=== PATIENT | male | born 1975 | race Caucasian/White ===

== ENCOUNTER 2019-02-22 12:24 | Inpatient (IN) | payer OTHER ==
[~2019-02-22] VITALS: Ht 172.7 cm; Wt 101.6 kg
[2019-02-22 13:20] LABS: BASOPHILS # (AUTO) 0.04 x10^3/uL (0-0.1); BASOPHILS % (AUTO) 0 % (0-1); EOSINOPHILS # (AUTO) 0.19 x10^3/uL (0-0.4); EOSINOPHILS % (AUTO) 2 % (1-7); LYMPHOCYTES # (AUTO) 1.21 x10^3/uL (1-3.4); LYMPHOCYTES % (AUTO) 11 % (22-44); MD NO; MEAN CORPUSCULAR HEMOGLOBIN 29.7 pg (27.5-34.5); MEAN CORPUSCULAR HGB CONC 31.9 g/dL (33.2-36.2); MEAN CORPUSCULAR VOLUME 93.2 fL (81-97); MEAN PLATELET VOLUME 6.2 fL (7.4-10.4); MONOCYTES # (AUTO) 0.72 x10^3/uL (0.2-0.8); MONOCYTES % (AUTO) 7 % (2-9); NEUTROPHILS # (AUTO) 8.47 x10^3/uL (1.8-6.8); NEUTROPHILS % (AUTO) 80 % (42-75); PLATELET COUNT 427 x10^3/uL (130-400); RED BLOOD COUNT 3.36 x10^6/uL (4.38-5.82); RED CELL DISTRIBUTION WIDTH 14.6 % (9.4-14.8)
[2019-02-22 13:33] LABS: ALBUMIN 2.1 g/dL (3.4-5.0)
[2019-02-22 13:38] LABS: ALANINE AMINOTRANSFERASE 25 U/L (12-78); ALKALINE PHOSPHATASE 139 U/L (45-117); BILIRUBIN,TOTAL 0.5 mg/dL (0.2-1.0); TOTAL PROTEIN 6.6 g/dL (6.4-8.2); TROPONIN I 0.054 ng/mL (0.000-0.045)
--- NOTE | 2019-02-22 13:40 | NUR ---
ASSUMED CARE OF PT FROM LOBBY AT THIS TIME. PT C/O MULTIPLE SYMPTOMS INCLUDING COUGH FOR 2 WEEKS, SOB ON EXERTION, NAUSEA, AND "SOMETHING STUCK IN MY THROAT" OVER SAME 2 WEEKS. PT HAS HX OF DM AND HTN. SPOUSE AT BEDSIDE REPORTS PT IS NONCOMPLIANT WITH HTN MEDS. + SWELLING TO BOTH EXTREMITIES. PT DENIES CP. PT RECENTLY TRAVELED TO [place] VIA CAR.
[2019-02-22 13:43] LABS: ANION GAP 16 mmol/L (5-15); CALCIUM 6.2 mg/dL (8.5-10.1); CHLORIDE 111 mmol/L (98-107)
[2019-02-22] MEDS ORDERED: ASPIRIN 325 MG TABLET PO ONE (14:00)
[2019-02-22] MEDS ORDERED: INSULIN PUMP (14:27)
[2019-02-22] MEDS ORDERED: COREG PO (14:28)
[2019-02-22] MEDS ORDERED: LIDOCAINE 1%, 20ML ONE (14:52)
--- NOTE | 2019-02-22 14:59 | NUR ---
PT TO IR PRIOR TO BEING ABLE TO GIVE NITRO FOR BP.
[2019-02-22] MEDS ORDERED: NITROGLYCERIN 0.4 MG BOTTLE (25 TABS) SL ONE (15:00)
--- NOTE | 2019-02-22 15:10 | NUR ---
NO BLOOD CULTURES NEEDED PER DR. SHARMA PRIOR TO ANTIBIOTICS.
[2019-02-22 15:12] LABS: MICROSCOPIC INDICATED
[2019-02-22] MEDS ORDERED: FENTANYL PF 100 MCG/2ML ONE (15:13)
[2019-02-22] MEDS ORDERED: FLUMAZENIL 0.1 MG/1 ML, 5ML ONE (15:13)
[2019-02-22] MEDS ORDERED: NALOXONE 1 MG/ML, 2ML ONE (15:13)
[2019-02-22] MEDS ORDERED: CEFAZOLIN PMX 1GM/50ML 0 ML ONE (15:13)
[2019-02-22] MEDS ORDERED: MIDAZOLAM 1 MG/ML, 5ML ONE (15:13)
[2019-02-22] MEDS ORDERED: ASPIRIN 325 MG TABLET ONE (15:13)
[2019-02-22] MEDS ORDERED: CEFAZOLIN PMX 1GM/50ML 50 ML IV ONE (15:30)
[2019-02-22 15:34] LABS: CULTURE INDICATED? NO
--- NOTE | 2019-02-22 15:43 | NUR ---
PT STILL IN IR.
--- NOTE | 2019-02-22 15:49 | NUR ---
PT BACK FROM IR. PT RECEIVED 1 GRAM OF ANCEF WHILE IN IR.
[2019-02-22] MEDS ORDERED: NITROGLYCERIN SINGLE TAB 0.4 MG SL ONE (15:53)
--- NOTE | 2019-02-22 15:57 | NUR ---
DR. WINSTON, NEPHROLOGY, AT BEDSIDE. PT MEDICATED FOR BP.
--- NOTE | 2019-02-22 16:30 | NUR ---
BP 184/124. DR. SHARMA AWARE AND NOT GOING TO TREAT RIGHT PT IS SUPPOSE TO GET DIALYSIS TONIGHT.
[2019-02-22 16:48] LABS: ABSOLUTE RETICS # 0.084 x10^6/uL (0.5-1.5); RED BLOOD COUNT 3.32 x10^6/uL (4.38-5.82); RETICULOCYTE COUNT % 2.52 % (0.5-1.5)
[2019-02-22] MEDS ORDERED: hydrALAzine 20 MG/ML, 1ML IVPush PRN (17:00)
[2019-02-22] MEDS ORDERED: ONDANSETRON ODT 4 MG PO PRN (17:00)
[2019-02-22] MEDS ORDERED: ACETAMINOPHEN 325 MG TABLET PO PRN (17:00)
[2019-02-22] MEDS ORDERED: ONDANSETRON 2MG/ML, 2ML IVPush PRN (17:00)
[2019-02-22 17:09] LABS: CALCIUM 6.2 mg/dL (8.5-10.1)
--- NOTE | 2019-02-22 17:11 | NUR ---
PT SPOKE TO SPOUSE AND SHE REPORRTS THAT HE NEVER HAD MRSA. PT WAS INITIALLY CONFUSED IN TRIAGE THAT HE MAY HAVE HAD IT WHILE HE WAS IN [place] "MANY YEARS AGO."
[2019-02-22 17:21] LABS: HEMOGLOBIN A1C 6.3 % (4.2-6.3)
[2019-02-22 17:33] LABS: C-REACTIVE PROTEIN, QUANT 0.79 mg/dL (0.02-0.49)
[2019-02-22 17:38] LABS: TROPONIN I 0.053 ng/mL (0.000-0.045)
[2019-02-22 17:55] VITALS: BP 201/135
[2019-02-22 18:07] LABS: HCT (SEDRATE) 31.3 % (39.2-51.8)
[2019-02-22 18:56] VITALS: BP 165/88
[2019-02-22 19:42] VITALS: BP 165/101
[2019-02-22] MEDS: HEPARIN 5,000 UNITS/ML, 1ML SQ SCH (20:08)
[2019-02-22 23:39] LABS: CREATININE,URINE RANDOM 59.9 mg/dL
[2019-02-23 01:50] VITALS: BP 137/83
[2019-02-23 02:23] LABS: TROPONIN I 0.045 ng/mL (0.000-0.045)
[2019-02-23] MEDS: HEPARIN 5,000 UNITS/ML, 1ML SQ SCH ×3 (04:21→20:10)
[2019-02-23 05:58] LABS: BASOPHILS # (AUTO) 0.06 x10^3/uL (0-0.1); BASOPHILS % (AUTO) 1 % (0-1); EOSINOPHILS # (AUTO) 0.13 x10^3/uL (0-0.4); EOSINOPHILS % (AUTO) 1 % (1-7); LYMPHOCYTES # (AUTO) 1.04 x10^3/uL (1-3.4); LYMPHOCYTES % (AUTO) 10 % (22-44); MD NO; MEAN CORPUSCULAR HEMOGLOBIN 30.7 pg (27.5-34.5); MEAN CORPUSCULAR HGB CONC 33.1 g/dL (33.2-36.2); MEAN CORPUSCULAR VOLUME 92.6 fL (81-97); MEAN PLATELET VOLUME 6.6 fL (7.4-10.4); MONOCYTES # (AUTO) 0.69 x10^3/uL (0.2-0.8); MONOCYTES % (AUTO) 7 % (2-9); NEUTROPHILS # (AUTO) 8.37 x10^3/uL (1.8-6.8); NEUTROPHILS % (AUTO) 81 % (42-75); PLATELET COUNT 397 x10^3/uL (130-400); RED BLOOD COUNT 3.15 x10^6/uL (4.38-5.82)
[2019-02-23 06:16] LABS: ALANINE AMINOTRANSFERASE 17 U/L (12-78); ANION GAP 13 mmol/L (5-15); CALCIUM 6.4 mg/dL (8.5-10.1); CHLORIDE 106 mmol/L (98-107)
[2019-02-23 06:18] LABS: ALKALINE PHOSPHATASE 122 U/L (45-117); BILIRUBIN,TOTAL 0.7 mg/dL (0.2-1.0); TOTAL PROTEIN 6.3 g/dL (6.4-8.2)
[2019-02-23 07:05] VITALS: BP 163/94
[2019-02-23] MEDS: CALCITRIOL 0.25 MCG CAPSULE PO SCH (07:37)
[2019-02-23] MEDS ORDERED: ARANESP 60 MCG/ML **ESRD SQ SCH (12:00)
[2019-02-23] MEDS ORDERED: ERGOCALCIFEROL 50,000 UNIT CAPSULE PO SCH (12:00)
[2019-02-23] MEDS: IRON SUCROSE COMPLEX 100MG/5ML IV SCH (12:46)
[2019-02-23] MEDS ORDERED: DARBEPOETIN 100 MCG/ML SQ SCH (13:00)
[2019-02-23 13:15] VITALS: BP 123/85
[2019-02-23 19:14] VITALS: BP 148/91
[2019-02-24 00:49] VITALS: BP 136/82
[2019-02-24] MEDS: HEPARIN 5,000 UNITS/ML, 1ML SQ SCH ×3 (04:23→20:10)
[2019-02-24 06:55] LABS: BASOPHILS # (AUTO) 0.03 x10^3/uL (0-0.1); BASOPHILS % (AUTO) 0 % (0-1); EOSINOPHILS # (AUTO) 0.16 x10^3/uL (0-0.4); EOSINOPHILS % (AUTO) 2 % (1-7); LYMPHOCYTES # (AUTO) 1.64 x10^3/uL (1-3.4); LYMPHOCYTES % (AUTO) 20 % (22-44); MD NO; MEAN CORPUSCULAR HEMOGLOBIN 30.7 pg (27.5-34.5); MEAN CORPUSCULAR HGB CONC 32.6 g/dL (33.2-36.2); MEAN CORPUSCULAR VOLUME 94.3 fL (81-97); MEAN PLATELET VOLUME 6.7 fL (7.4-10.4); MONOCYTES # (AUTO) 0.76 x10^3/uL (0.2-0.8); MONOCYTES % (AUTO) 9 % (2-9); NEUTROPHILS # (AUTO) 5.48 x10^3/uL (1.8-6.8); NEUTROPHILS % (AUTO) 68 % (42-75); PLATELET COUNT 420 x10^3/uL (130-400); RED BLOOD COUNT 3.28 x10^6/uL (4.38-5.82); RED CELL DISTRIBUTION WIDTH 14.5 % (9.4-14.8)
[2019-02-24 07:11] LABS: ANION GAP 12 mmol/L (5-15); CALCIUM 6.7 mg/dL (8.5-10.1); CHLORIDE 106 mmol/L (98-107); CREATININE 8.74 mg/dL (0.7-1.3)
[2019-02-24 07:42] VITALS: BP 166/89
[2019-02-24] MEDS: CALCITRIOL 0.25 MCG CAPSULE PO SCH (09:01)
[2019-02-24] MEDS: LOSARTAN 50MG TABLET PO SCH (09:02)
[2019-02-24] MEDS ORDERED: POTASSIUM CHLORIDE 20 MEQ TAB.ER.PRT PO ONE (11:00)
[2019-02-24] MEDS: IRON SUCROSE COMPLEX 100MG/5ML IV SCH (12:08)
[2019-02-24 14:33] VITALS: BP 165/95
[2019-02-24] MEDS: CARVEDILOL 6.25 MG TABLET PO SCH (17:25)
[2019-02-24 17:26] VITALS: BP 155/97
[2019-02-24 19:11] VITALS: BP 146/91
[2019-02-25 01:32] VITALS: BP 152/99
[2019-02-25] MEDS: HEPARIN 5,000 UNITS/ML, 1ML SQ SCH ×2 (05:07→12:22)
[2019-02-25] MEDS: CARVEDILOL 6.25 MG TABLET PO SCH (05:08)
[2019-02-25 05:57] LABS: BASOPHILS # (AUTO) 0.03 x10^3/uL (0-0.1); BASOPHILS % (AUTO) 0 % (0-1); EOSINOPHILS # (AUTO) 0.14 x10^3/uL (0-0.4); EOSINOPHILS % (AUTO) 2 % (1-7); LYMPHOCYTES # (AUTO) 1.68 x10^3/uL (1-3.4); LYMPHOCYTES % (AUTO) 19 % (22-44); MD NO; MEAN CORPUSCULAR HEMOGLOBIN 30.1 pg (27.5-34.5); MEAN CORPUSCULAR HGB CONC 32.1 g/dL (33.2-36.2); MEAN CORPUSCULAR VOLUME 93.8 fL (81-97); MEAN PLATELET VOLUME 6.3 fL (7.4-10.4); MONOCYTES # (AUTO) 0.75 x10^3/uL (0.2-0.8); MONOCYTES % (AUTO) 9 % (2-9); NEUTROPHILS # (AUTO) 6.07 x10^3/uL (1.8-6.8); NEUTROPHILS % (AUTO) 70 % (42-75); PLATELET COUNT 422 x10^3/uL (130-400); RED BLOOD COUNT 3.31 x10^6/uL (4.38-5.82); RED CELL DISTRIBUTION WIDTH 14.5 % (9.4-14.8)
[2019-02-25 06:04] LABS: ALANINE AMINOTRANSFERASE 10 U/L (12-78); ALBUMIN 2.1 g/dL (3.4-5.0); ANION GAP 8 mmol/L (5-15); CALCIUM 7.3 mg/dL (8.5-10.1); CHLORIDE 108 mmol/L (98-107); CREATININE 6.82 mg/dL (0.7-1.3)
[2019-02-25 06:07] LABS: ALKALINE PHOSPHATASE 116 U/L (45-117); BILIRUBIN,TOTAL 0.3 mg/dL (0.2-1.0); TOTAL PROTEIN 6.4 g/dL (6.4-8.2)
[2019-02-25 06:55] VITALS: BP 131/80
[2019-02-25] MEDS: CALCITRIOL 0.25 MCG CAPSULE PO SCH (09:27)
[2019-02-25] MEDS: LOSARTAN 50MG TABLET PO SCH (09:28)
[2019-02-25] MEDS: IRON SUCROSE COMPLEX 100MG/5ML IV SCH (12:22)
[2019-02-25] MEDS ORDERED: CARV6.2512 PO (12:56)
[2019-02-25] MEDS ORDERED: CALC0.25 PO (12:56)
[2019-02-25] MEDS ORDERED: LOSA50TA2 PO (12:56)
[2019-02-25 13:23] VITALS: BP 136/82
== END 2019-02-25 15:20 | disposition home or self-care (01) | DRG 280 ==
LOC: ED 14:40 → EDIP 15:55 → 4WST 17:36 → DCLOUNGE 02-25 15:10
PROVIDERS: ADMIT Internal Medicine; ATTEND Internal Medicine
PROC: 5A1D70Z Performance of Urinary Filtration, Intermittent, Less than 6 Hours Per Day (ICD-10-PCS; 2019-02-20)
PROC: 02HV33Z Insertion of Infusion Device into Superior Vena Cava, Percutaneous Approach (ICD-10-PCS; principal; 2019-02-22)
PROC: B5181ZA Fluoroscopy of Superior Vena Cava using Low Osmolar Contrast, Guidance (ICD-10-PCS; 2019-02-22)
PROC: B548ZZA Ultrasonography of Superior Vena Cava, Guidance (ICD-10-PCS; 2019-02-22)
PROC: 5A1D70Z Performance of Urinary Filtration, Intermittent, Less than 6 Hours Per Day (ICD-10-PCS; 2019-02-22)
PROC: 5A1D70Z Performance of Urinary Filtration, Intermittent, Less than 6 Hours Per Day (ICD-10-PCS; 2019-02-23)
PROC: 5A1D70Z Performance of Urinary Filtration, Intermittent, Less than 6 Hours Per Day (ICD-10-PCS; 2019-02-24)
DX: I21.4 Non-ST elevation (NSTEMI) myocardial infarction (principal); N18.6 End stage renal disease; N17.9 Acute kidney failure, unspecified; E87.2 Acidosis; I13.2 Hypertensive heart and chronic kidney disease with heart failure and with stage 5 chronic kidney disease, or end stage renal disease; D64.9 Anemia, unspecified; D72.829 Elevated white blood cell count, unspecified; E10.21 Type 1 diabetes mellitus with diabetic nephropathy; E10.22 Type 1 diabetes mellitus with diabetic chronic kidney disease; E10.319 Type 1 diabetes mellitus with unspecified diabetic retinopathy without macular edema; E10.42 Type 1 diabetes mellitus with diabetic polyneuropathy; E10.610 Type 1 diabetes mellitus with diabetic neuropathic arthropathy; E83.51 Hypocalcemia; E78.5 Hyperlipidemia, unspecified; E87.6 Hypokalemia; I50.9 Heart failure, unspecified; N25.0 Renal osteodystrophy; Z79.4 Long term (current) use of insulin; Z80.0 Family history of malignant neoplasm of digestive organs; Z99.2 Dependence on renal dialysis; Z89.411 Acquired absence of right great toe
CPT/HCPCS: 36415; 73630; 77001; 84155; 84156; 99285; J3490; 36558; 71045; 76770; 76937; 80053; 80069; 80074; 81001; 82306; 82310; 82436; 82570; 82728; 82947; 82962; 83036; 83540; 83550; 83690; 83735; 83880; 83970; 84100; 84133; 84165; 84166; 84300; 84484; 84550; 85025; 85045; 85651; 86140; 86480; 93005; 93306; 93970; 99156; 99157; G0378; J0690; J0882; J1644; J1756; J2250; J3010; C1750; J0360; J1642; J2310

== ENCOUNTER 2019-09-15 12:43 | Inpatient (IN) | payer OTHER ==
[~2019-09-15] VITALS: Ht 172.7 cm; Wt 98.0 kg
[~2019-09-15 12:43] MED LIST: CALC0.25 PO; CARV6.2512 PO; COREG PO; INSULIN PUMP; LOSA50TA2 PO
[2019-09-15] MEDS ORDERED: SODIUM CHLORIDE FLUSH 10ML SYR IVF ONE (13:30)
[2019-09-15 13:47] LABS: MEAN CORPUSCULAR HEMOGLOBIN 30.3 pg (27.5-34.5); MEAN CORPUSCULAR HGB CONC 32.2 g/dL (33.2-36.2); MEAN PLATELET VOLUME 6.9 fL (7.4-10.4); PLATELET COUNT 312 x10^3/uL (130-400); RED BLOOD COUNT 3.77 x10^6/uL (4.38-5.82); RED CELL DISTRIBUTION WIDTH 15.5 % (9.4-14.8)
[2019-09-15 13:52] LABS: ALBUMIN 3.1 g/dL (3.4-5.0); ANION GAP 5 mmol/L (5-15); CALCIUM 7.6 mg/dL (8.5-10.1); CHLORIDE 101 mmol/L (98-107)
[2019-09-15] MEDS ORDERED: ACETAMINOPHEN 500 MG TABLET ONE (13:53)
[2019-09-15] MEDS ORDERED: ACETAMINOPHEN 500 MG TABLET PO ONE (14:00)
[2019-09-15 14:41] LABS: MD YES
[2019-09-15 14:43] LABS: BAND#(MANUAL) 2.12 x10^3/uL; BANDS%(MANUAL) 15 % (0-7); LYMPH#(MANUAL) 0.56 x10^3/uL (1-3.4); LYMPHS% (MANUAL) 4 % (22-44); MONOS#(MANUAL) 0.42 x10^3/uL (0.3-2.7); MONOS% (MANUAL) 3 % (2-9); SEGS% (MANUAL) 78 % (42-75)
[2019-09-15 14:44] LABS: ANISOCYTOSIS 1+
[2019-09-15 14:45] LABS: <PLATELET ESTIMATE> ADEQUATE; <PLT MORPHOLOGY> NORMAL PLT MORPH
[2019-09-15] MEDS ORDERED: VANCOMYCIN 1,500 MG in SODIUM CHLORIDE 0.9% 250 ML IV ONE (15:30)
[2019-09-15] MEDS ORDERED: VANCOMYCIN PER PHARMACY MC ONE (15:30)
[2019-09-15] MEDS ORDERED: PIPERACILLIN/TAZO/PMX 3.375GM 50 ML ONE (15:30)
[2019-09-15] MEDS ORDERED: PIPERACILLIN/TAZO/PMX 3.375GM 50 ML IV ONE (15:30)
[2019-09-15] MEDS ORDERED: LIDOCAINE 1%, 20ML ONE (15:59)
[2019-09-15] MEDS ORDERED: hydrALAzine 20 MG/ML, 1ML IVPush PRN (16:00)
[2019-09-15] MEDS ORDERED: LABETALOL 5MG/ML, 20ML IVPush PRN (16:00)
[2019-09-15] MEDS ORDERED: GUAIFENESIN/DM 200-20MG, 10ML UDC PO PRN (16:00)
[2019-09-15] MEDS ORDERED: BUTALB/APAP/CAFFEINE 50MG/325MG/40MG PO PRN ×2 (16:00)
[2019-09-15] MEDS ORDERED: SODIUM CHLORIDE 0.9%, 500ML IVBOLUS ONE (16:00)
[2019-09-15] MEDS ORDERED: POLYETHYLENE GLYCOL 17 GM PACKET PO PRN (16:00)
[2019-09-15] MEDS ORDERED: VANCOMYCIN PER PHARMACY MC PRN (16:00)
[2019-09-15] MEDS ORDERED: ONDANSETRON 2MG/ML, 2ML IVPush PRN (16:00)
[2019-09-15] MEDS ORDERED: ONDANSETRON ODT 4 MG PO PRN (16:00)
[2019-09-15] MEDS ORDERED: FENTANYL PF 100 MCG/2ML ONE (16:13)
[2019-09-15] MEDS ORDERED: PHARMACOKINETIC MONITORING MC PRN (18:00)
[2019-09-15] MEDS ORDERED: PIPERACILLIN/TAZO 0.75 GM in SODIUM CHLORIDE 0.9% 50 ML IV PRN (18:00)
[2019-09-15] MEDS ORDERED: PHARMACOKINETIC CONSULTATION MC ONE (18:00)
[2019-09-15 20:03] VITALS: BP 124/75
[2019-09-15] MEDS ORDERED: CALCIUM CARBONATE 500 MG TAB.CHEW ONE (20:16)
[2019-09-15] MEDS: CALCIUM CARBONATE 500 MG TAB.CHEW PO PRN (20:18)
[2019-09-16 00:44] VITALS: BP 112/66
[2019-09-16] MEDS: CALCIUM CARBONATE 500 MG TAB.CHEW PO PRN ×2 (04:03→17:42)
[2019-09-16] MEDS: ACETAMINOPHEN 325 MG TABLET PO PRN ×2 (04:07→15:02)
[2019-09-16 05:09] LABS: BASOPHILS # (AUTO) 0.04 x10^3/uL (0-0.1); BASOPHILS % (AUTO) 0 % (0-1); EOSINOPHILS # (AUTO) 0.15 x10^3/uL (0-0.4); EOSINOPHILS % (AUTO) 2 % (1-7); LYMPHOCYTES # (AUTO) 0.84 x10^3/uL (1-3.4); LYMPHOCYTES % (AUTO) 9 % (22-44); MD NO; MEAN CORPUSCULAR HGB CONC 32.2 g/dL (33.2-36.2); MEAN CORPUSCULAR VOLUME 96.1 fL (81-97); MEAN PLATELET VOLUME 7.5 fL (7.4-10.4); MONOCYTES # (AUTO) 0.77 x10^3/uL (0.2-0.8); MONOCYTES % (AUTO) 8 % (2-9); NEUTROPHILS # (AUTO) 7.44 x10^3/uL (1.8-6.8); NEUTROPHILS % (AUTO) 81 % (42-75); PLATELET COUNT 231 x10^3/uL (130-400); RED CELL DISTRIBUTION WIDTH 15.5 % (9.4-14.8)
[2019-09-16 05:12] LABS: % IRON SATURATION 8 % (20-55); ALBUMIN 2.7 g/dL (3.4-5.0); ANION GAP 8 mmol/L (5-15); CALCIUM 7.2 mg/dL (8.5-10.1); CHLORIDE 101 mmol/L (98-107); IRON LEVEL 15 mcg/dL (65-175); TOTAL IRON BINDING CAPACITY 199 mcg/dL (250-450)
[2019-09-16 05:16] LABS: VANCOMYCIN,RANDOM 33.4 mcg/mL
[2019-09-16] MEDS: PIPERACILLIN/TAZO/PMX 2.25GM 50 ML IV SCH ×2 (06:16→17:36)
[2019-09-16 09:14] VITALS: BP 144/87
[2019-09-16] MEDS ORDERED: ERGOCALCIFEROL 50,000 UNIT CAPSULE PO SCH (10:30)
[2019-09-16 14:55] VITALS: BP 166/104
[2019-09-16] MEDS: FERROUS SULFATE 325 MG TABLET PO SCH (17:36)
[2019-09-16] MEDS: CARVEDILOL 6.25 MG TABLET PO SCH (17:36)
[2019-09-16 20:47] VITALS: BP 105/69
[2019-09-17] MEDS: TEMAZEPAM 15 MG CAPSULE PO PRN ×2 (00:58→22:36)
[2019-09-17] MEDS: ACETAMINOPHEN 325 MG TABLET PO PRN ×2 (00:58→14:17)
[2019-09-17 02:31] VITALS: BP 135/85
[2019-09-17] MEDS: PIPERACILLIN/TAZO/PMX 2.25GM 50 ML IV SCH (05:33)
[2019-09-17] MEDS: CARVEDILOL 6.25 MG TABLET PO SCH ×2 (05:34→17:49)
[2019-09-17 08:04] VITALS: BP 136/75
[2019-09-17] MEDS: FERROUS SULFATE 325 MG TABLET PO SCH ×2 (10:02→17:49)
[2019-09-17 12:00] VITALS: BP 166/88
[2019-09-17] MEDS: NAFCILLIN 2 GM in DEXTROSE 5% 100 ML IV SCH ×3 (14:21→22:36)
[2019-09-17] MEDS: CALCIUM CARBONATE 500 MG TAB.CHEW PO PRN (14:23)
[2019-09-17 18:53] VITALS: BP 142/92
[2019-09-18 00:18] VITALS: BP 123/68
[2019-09-18] MEDS: NAFCILLIN 2 GM in DEXTROSE 5% 100 ML IV SCH ×6 (03:09→22:24)
[2019-09-18 06:30] VITALS: BP 149/90
[2019-09-18] MEDS: CARVEDILOL 6.25 MG TABLET PO SCH ×2 (06:34→17:23)
[2019-09-18 06:43] LABS: BASOPHILS # (AUTO) 0.04 x10^3/uL (0-0.1); BASOPHILS % (AUTO) 1 % (0-1); EOSINOPHILS # (AUTO) 0.12 x10^3/uL (0-0.4); EOSINOPHILS % (AUTO) 2 % (1-7); LYMPHOCYTES # (AUTO) 0.96 x10^3/uL (1-3.4); LYMPHOCYTES % (AUTO) 18 % (22-44); MD NO; MEAN CORPUSCULAR HEMOGLOBIN 30.8 pg (27.5-34.5); MEAN CORPUSCULAR HGB CONC 32.2 g/dL (33.2-36.2); MEAN CORPUSCULAR VOLUME 95.6 fL (81-97); MEAN PLATELET VOLUME 7.5 fL (7.4-10.4); MONOCYTES # (AUTO) 0.79 x10^3/uL (0.2-0.8); MONOCYTES % (AUTO) 15 % (2-9); NEUTROPHILS # (AUTO) 3.31 x10^3/uL (1.8-6.8); NEUTROPHILS % (AUTO) 64 % (42-75); PLATELET COUNT 255 x10^3/uL (130-400); RED BLOOD COUNT 3.29 x10^6/uL (4.38-5.82)
[2019-09-18 06:46] LABS: CALCIUM 7.6 mg/dL (8.5-10.1); CHLORIDE 101 mmol/L (98-107)
[2019-09-18 06:52] LABS: ALANINE AMINOTRANSFERASE 23 U/L (12-78); ALBUMIN 2.6 g/dL (3.4-5.0); ALKALINE PHOSPHATASE 165 U/L (45-117); ANION GAP 10 mmol/L (5-15); CREATININE 8.85 mg/dL (0.7-1.3); TOTAL PROTEIN 7.1 g/dL (6.4-8.2)
[2019-09-18] MEDS: FERROUS SULFATE 325 MG TABLET PO SCH ×2 (07:59→17:23)
[2019-09-18 12:34] VITALS: BP 137/80
[2019-09-18] MEDS: CALCIUM CARBONATE 500 MG TAB.CHEW PO PRN ×2 (12:53→17:23)
[2019-09-18 20:49] VITALS: BP 161/94
[2019-09-18] MEDS: TEMAZEPAM 15 MG CAPSULE PO PRN (22:24)
[2019-09-19 02:27] VITALS: BP 165/94
[2019-09-19] MEDS ORDERED: LORazepam 2 MG/ML, 1ML IVPush PRN (03:00)
[2019-09-19] MEDS: NAFCILLIN 2 GM in DEXTROSE 5% 100 ML IV SCH ×3 (03:02→10:30)
[2019-09-19] MEDS: CARVEDILOL 6.25 MG TABLET PO SCH (06:35)
[2019-09-19 06:52] LABS: BASOPHILS # (AUTO) 0.04 x10^3/uL (0-0.1); BASOPHILS % (AUTO) 1 % (0-1); EOSINOPHILS % (AUTO) 4 % (1-7); LYMPHOCYTES # (AUTO) 1.25 x10^3/uL (1-3.4); LYMPHOCYTES % (AUTO) 24 % (22-44); MD NO; MEAN CORPUSCULAR HEMOGLOBIN 30.3 pg (27.5-34.5); MEAN CORPUSCULAR HGB CONC 31.8 g/dL (33.2-36.2); MEAN CORPUSCULAR VOLUME 95.5 fL (81-97); MEAN PLATELET VOLUME 7.1 fL (7.4-10.4); MONOCYTES # (AUTO) 0.62 x10^3/uL (0.2-0.8); MONOCYTES % (AUTO) 12 % (2-9); NEUTROPHILS % (AUTO) 60 % (42-75); PLATELET COUNT 316 x10^3/uL (130-400); RED BLOOD COUNT 3.42 x10^6/uL (4.38-5.82); RED CELL DISTRIBUTION WIDTH 15.5 % (9.4-14.8)
[2019-09-19 07:02] LABS: CHLORIDE 103 mmol/L (98-107)
[2019-09-19 07:16] LABS: ALANINE AMINOTRANSFERASE 19 U/L (12-78); ALBUMIN 2.5 g/dL (3.4-5.0); ALKALINE PHOSPHATASE 143 U/L (45-117); ANION GAP 12 mmol/L (5-15); BILIRUBIN,TOTAL 1.2 mg/dL (0.2-1.0); CALCIUM 7.7 mg/dL (8.5-10.1); TOTAL PROTEIN 7.2 g/dL (6.4-8.2)
[2019-09-19 07:29] VITALS: BP 183/112
[2019-09-19] MEDS: FERROUS SULFATE 325 MG TABLET PO SCH (08:04)
[2019-09-19] MEDS ORDERED: CALC200T24 PO (13:35)
[2019-09-19] MEDS ORDERED: ERGO500017 PO (13:35)
[2019-09-19] MEDS ORDERED: FERR-51 PO (13:35)
== END 2019-09-19 14:11 | disposition home or self-care (01) | DRG 314 ==
LOC: ED 15:49 → EDIP 15:50 → 4WST 17:21
PROVIDERS: ADMIT Family Medicine; ATTEND Family Medicine
PROC: 02PAX3Z Removal of Infusion Device from Heart, External Approach (ICD-10-PCS; 2019-09-15)
PROC: 5A1D70Z Performance of Urinary Filtration, Intermittent, Less than 6 Hours Per Day (ICD-10-PCS; principal; 2019-09-17)
PROC: 5A1D70Z Performance of Urinary Filtration, Intermittent, Less than 6 Hours Per Day (ICD-10-PCS; 2019-09-19)
DX: T82.7XXA Infection and inflammatory reaction due to other cardiac and vascular devices, implants and grafts, initial encounter (principal); N18.6 End stage renal disease; E46 Unspecified protein-calorie malnutrition; I12.0 Hypertensive chronic kidney disease with stage 5 chronic kidney disease or end stage renal disease; R65.10 Systemic inflammatory response syndrome (SIRS) of non-infectious origin without acute organ dysfunction; D64.9 Anemia, unspecified; E10.22 Type 1 diabetes mellitus with diabetic chronic kidney disease; E10.319 Type 1 diabetes mellitus with unspecified diabetic retinopathy without macular edema; E10.610 Type 1 diabetes mellitus with diabetic neuropathic arthropathy; Z68.32 Body mass index [BMI] 32.0-32.9, adult; E78.5 Hyperlipidemia, unspecified; E83.51 Hypocalcemia; I34.0 Nonrheumatic mitral (valve) insufficiency; N25.0 Renal osteodystrophy; Z80.0 Family history of malignant neoplasm of digestive organs; Z96.41 Presence of insulin pump (external) (internal); Z99.2 Dependence on renal dialysis; Y83.8 Other surgical procedures as the cause of abnormal reaction of the patient, or of later complication, without mention of misadventure at the time of the procedure; Y92.89 Other specified places as the place of occurrence of the external cause
CPT/HCPCS: 36415; 77001; 84145; 96365; 99291; J3490; 0399T; 36589; 71045; 80048; 80053; 80069; 80202; 82040; 82306; 82728; 83540; 83550; 83605; 83735; 83970; 84100; 84550; 85025; 86705; 86706; 87040; 87070; 87077; 87147; 87186; 87340; 93005; 93306; G0378; J2405; J2543; J3010; J3370; J0360; J2060; J7040; J7050

== ENCOUNTER → 2019-11-20 | Outpatient (CLI) | payer OTHER ==
[~2019-11-20] MED LIST changes: +CALC200T24 PO; +CARV12.52 PO; +ERGO500017 PO; +FERR-51 PO; +INSU100C SQ-INSULIN; +LOSA25TA25 PO; +ROPI0.254 PO
== END | disposition home or self-care (01) ==
LOC: WOUND 08:34
PROVIDERS: ATTEND Internal Medicine
DX: E10.621 Type 1 diabetes mellitus with foot ulcer (principal); L97.512 Non-pressure chronic ulcer of other part of right foot with fat layer exposed; M14.671 Charcot's joint, right ankle and foot; M14.672 Charcot's joint, left ankle and foot; E10.21 Type 1 diabetes mellitus with diabetic nephropathy; E10.22 Type 1 diabetes mellitus with diabetic chronic kidney disease; I12.0 Hypertensive chronic kidney disease with stage 5 chronic kidney disease or end stage renal disease; N18.6 End stage renal disease; Z89.411 Acquired absence of right great toe; Z99.2 Dependence on renal dialysis; Z79.4 Long term (current) use of insulin
CPT/HCPCS: 11042; 11045; 99215

== ENCOUNTER 2019-11-22 10:05 | Day surgery (SDC) | payer OTHER ==
[~2019-11-22] VITALS: Ht 172.7 cm; Wt 85.0 kg
[~2019-11-22 10:05] MED LIST changes: -CARV12.52 PO; +GLYCOPYRROLATE 0.2MG/1ML, 5ML ONE; -INSU100C SQ-INSULIN; -LOSA25TA25 PO; +PROPOFOL 10 MG/ML, 20ML ONE; -ROPI0.254 PO
[2019-11-22] MEDS ORDERED: MIDAZOLAM 1 MG/ML, 5ML ONE (10:50)
[2019-11-22] MEDS ORDERED: VERAPAMIL 2.5 MG/ML, 2ML ONE (10:50)
[2019-11-22] MEDS ORDERED: TICAGRELOR 90 MG TABLET ONE (10:50)
[2019-11-22] MEDS ORDERED: FENTANYL PF 100 MCG/2ML ONE (10:50)
[2019-11-22] MEDS ORDERED: BIVALIRUDIN 250 MG ONE (10:51)
[2019-11-22] MEDS ORDERED: HEPARIN 1,000 UNITS/ML, 10ML ONE (10:51)
[2019-11-22] MEDS ORDERED: LIDOCAINE-MPF 1%, 5ML ONE (10:51)
[2019-11-22] MEDS ORDERED: NITROGLYCERIN 5 MG/ML, 10ML ONE (10:53)
[2019-11-22] MEDS ORDERED: ROPI0.254 PO (10:58)
[2019-11-22] MEDS ORDERED: INSU100C SQ-INSULIN (10:58)
[2019-11-22] MEDS ORDERED: LOSA25TA25 PO (10:58)
[2019-11-22] MEDS ORDERED: CARV12.52 PO (10:58)
[2019-11-22 11:10] LABS: BASOPHILS # (AUTO) 0.03 x10^3/uL (0-0.1); BASOPHILS % (AUTO) 1 % (0-1); EOSINOPHILS # (AUTO) 0.08 x10^3/uL (0-0.4); EOSINOPHILS % (AUTO) 1 % (1-7); LYMPHOCYTES # (AUTO) 1.53 x10^3/uL (1-3.4); LYMPHOCYTES % (AUTO) 25 % (22-44); MD NO; MEAN CORPUSCULAR HEMOGLOBIN 30.3 pg (27.5-34.5); MEAN CORPUSCULAR VOLUME 91.9 fL (81-97); MEAN PLATELET VOLUME 7.4 fL (7.4-10.4); MONOCYTES # (AUTO) 0.48 x10^3/uL (0.2-0.8); MONOCYTES % (AUTO) 8 % (2-9); NEUTROPHILS # (AUTO) 4.04 x10^3/uL (1.8-6.8); NEUTROPHILS % (AUTO) 66 % (42-75); PLATELET COUNT 372 x10^3/uL (130-400); RED BLOOD COUNT 3.76 x10^6/uL (4.38-5.82); RED CELL DISTRIBUTION WIDTH 14.9 % (9.4-14.8)
[2019-11-22 11:16] LABS: ALANINE AMINOTRANSFERASE 19 U/L (12-78); ANION GAP 5 mmol/L (5-15); CALCIUM 8.9 mg/dL (8.5-10.1); CHLORIDE 98 mmol/L (98-107)
[2019-11-22 11:19] LABS: ALKALINE PHOSPHATASE 132 U/L (45-117); BILIRUBIN,TOTAL 0.6 mg/dL (0.2-1.0); CREATININE 6.72 mg/dL (0.7-1.3); TOTAL PROTEIN 7.6 g/dL (6.4-8.2)
[2019-11-22] MEDS ORDERED: SODIUM CHLORIDE 0.9% 1,000 ML IV SCH ×2 (11:30→14:16)
[2019-11-22] MEDS ORDERED: PROPOFOL 10 MG/ML, 20ML ONE (12:19)
[2019-11-22] MEDS ORDERED: CALCIUM CARBONATE 500 MG TAB.CHEW ONE (14:15)
[2019-11-22] MEDS ORDERED: CALCIUM CARBONATE 500 MG TAB.CHEW PO ONE (14:30)
== END 2019-11-22 15:26 | disposition home or self-care (01) ==
LOC: CACL 10:05
PROVIDERS: ATTEND Internal Medicine Cardiovascular Disease
DX: I08.1 Rheumatic disorders of both mitral and tricuspid valves (principal); I25.10 Atherosclerotic heart disease of native coronary artery without angina pectoris; E10.22 Type 1 diabetes mellitus with diabetic chronic kidney disease; I13.2 Hypertensive heart and chronic kidney disease with heart failure and with stage 5 chronic kidney disease, or end stage renal disease; N18.6 End stage renal disease; I50.9 Heart failure, unspecified; E78.5 Hyperlipidemia, unspecified; Z79.4 Long term (current) use of insulin; Z79.899 Other long term (current) drug therapy; Z99.2 Dependence on renal dialysis
CPT/HCPCS: 36415; 80053; 85025; 93312; 93321; 93325; 93458; C1769; C1894; J1644; J2250; J2704; J3010; Q9967; J0583

== ENCOUNTER → 2019-11-27 | Outpatient (CLI) | payer OTHER ==
[~2019-11-27] MED LIST changes: +CARV12.52 PO; -GLYCOPYRROLATE 0.2MG/1ML, 5ML ONE; +INSU100C SQ-INSULIN; +LOSA25TA25 PO; -PROPOFOL 10 MG/ML, 20ML ONE; +ROPI0.254 PO
== END | disposition home or self-care (01) ==
LOC: WOUND 09:59
PROVIDERS: ATTEND Internal Medicine
DX: E11.621 Type 2 diabetes mellitus with foot ulcer (principal); L97.512 Non-pressure chronic ulcer of other part of right foot with fat layer exposed; L84 Corns and callosities; E11.22 Type 2 diabetes mellitus with diabetic chronic kidney disease; I13.2 Hypertensive heart and chronic kidney disease with heart failure and with stage 5 chronic kidney disease, or end stage renal disease; N18.6 End stage renal disease; I50.9 Heart failure, unspecified; E11.36 Type 2 diabetes mellitus with diabetic cataract; H26.9 Unspecified cataract; E11.610 Type 2 diabetes mellitus with diabetic neuropathic arthropathy; E11.21 Type 2 diabetes mellitus with diabetic nephropathy; Z99.2 Dependence on renal dialysis; I25.10 Atherosclerotic heart disease of native coronary artery without angina pectoris; I05.9 Rheumatic mitral valve disease, unspecified; E78.5 Hyperlipidemia, unspecified; Z79.899 Other long term (current) drug therapy; Z79.4 Long term (current) use of insulin; Z89.411 Acquired absence of right great toe
CPT/HCPCS: 11042

== ENCOUNTER → 2019-12-04 | Outpatient (CLI) | payer OTHER | END | disposition home or self-care (01) | LOC: WOUND 09:48 | PROVIDERS: ATTEND Internal Medicine | DX: E11.621 Type 2 diabetes mellitus with foot ulcer (principal); L97.512 Non-pressure chronic ulcer of other part of right foot with fat layer exposed; L84 Corns and callosities; E11.22 Type 2 diabetes mellitus with diabetic chronic kidney disease; I13.2 Hypertensive heart and chronic kidney disease with heart failure and with stage 5 chronic kidney disease, or end stage renal disease; N18.6 End stage renal disease; I50.9 Heart failure, unspecified; E11.36 Type 2 diabetes mellitus with diabetic cataract; H26.9 Unspecified cataract; E11.610 Type 2 diabetes mellitus with diabetic neuropathic arthropathy; E11.21 Type 2 diabetes mellitus with diabetic nephropathy; I25.10 Atherosclerotic heart disease of native coronary artery without angina pectoris; I08.1 Rheumatic disorders of both mitral and tricuspid valves; E78.5 Hyperlipidemia, unspecified; Z99.2 Dependence on renal dialysis; Z79.4 Long term (current) use of insulin; Z79.899 Other long term (current) drug therapy; Z90.49 Acquired absence of other specified parts of digestive tract; Z89.411 Acquired absence of right great toe | CPT/HCPCS: 15275; Q4106 ==

== ENCOUNTER → 2019-12-15 | Outpatient (CLI) | payer OTHER | END | disposition home or self-care (01) | LOC: CVU 12:52 | PROVIDERS: ATTEND Internal Medicine | DX: L97.512 Non-pressure chronic ulcer of other part of right foot with fat layer exposed (principal); E10.621 Type 1 diabetes mellitus with foot ulcer; M14.671 Charcot's joint, right ankle and foot | CPT/HCPCS: 93922; 93925; 93970 ==

== ENCOUNTER → 2019-12-27 | Outpatient (CLI) | payer OTHER | END | disposition home or self-care (01) | LOC: WOUND 14:28 | PROVIDERS: ATTEND Internal Medicine | DX: E11.621 Type 2 diabetes mellitus with foot ulcer (principal); L97.512 Non-pressure chronic ulcer of other part of right foot with fat layer exposed; L84 Corns and callosities; E11.22 Type 2 diabetes mellitus with diabetic chronic kidney disease; I13.11 Hypertensive heart and chronic kidney disease without heart failure, with stage 5 chronic kidney disease, or end stage renal disease; I50.9 Heart failure, unspecified; N18.6 End stage renal disease; E11.36 Type 2 diabetes mellitus with diabetic cataract; H26.9 Unspecified cataract; E11.21 Type 2 diabetes mellitus with diabetic nephropathy; E11.610 Type 2 diabetes mellitus with diabetic neuropathic arthropathy; I08.1 Rheumatic disorders of both mitral and tricuspid valves; I25.10 Atherosclerotic heart disease of native coronary artery without angina pectoris; E78.5 Hyperlipidemia, unspecified; Z99.2 Dependence on renal dialysis; Z90.49 Acquired absence of other specified parts of digestive tract; Z98.49 Cataract extraction status, unspecified eye; Z79.4 Long term (current) use of insulin; Z79.899 Other long term (current) drug therapy; Z89.411 Acquired absence of right great toe | CPT/HCPCS: 97597 ==

== ENCOUNTER → 2020-01-03 | Outpatient (CLI) | payer OTHER | END | disposition home or self-care (01) | LOC: WOUND 10:09 | PROVIDERS: ATTEND Internal Medicine | DX: E11.621 Type 2 diabetes mellitus with foot ulcer (principal); L97.512 Non-pressure chronic ulcer of other part of right foot with fat layer exposed; L84 Corns and callosities; E11.22 Type 2 diabetes mellitus with diabetic chronic kidney disease; I13.11 Hypertensive heart and chronic kidney disease without heart failure, with stage 5 chronic kidney disease, or end stage renal disease; I50.9 Heart failure, unspecified; N18.6 End stage renal disease; E11.36 Type 2 diabetes mellitus with diabetic cataract; H26.9 Unspecified cataract; E11.21 Type 2 diabetes mellitus with diabetic nephropathy; E11.610 Type 2 diabetes mellitus with diabetic neuropathic arthropathy; I08.1 Rheumatic disorders of both mitral and tricuspid valves; I25.10 Atherosclerotic heart disease of native coronary artery without angina pectoris; E78.5 Hyperlipidemia, unspecified; Z99.2 Dependence on renal dialysis; Z90.49 Acquired absence of other specified parts of digestive tract; Z98.49 Cataract extraction status, unspecified eye; Z79.4 Long term (current) use of insulin; Z79.899 Other long term (current) drug therapy; Z89.411 Acquired absence of right great toe | CPT/HCPCS: 97597 ==

== ENCOUNTER 2020-01-17 10:25 | Outpatient (CLI) | payer OTHER | END 2020-01-17 23:59 | disposition home or self-care (01) | LOC: WOUND 10:25 | PROVIDERS: ATTEND Internal Medicine | DX: E11.621 Type 2 diabetes mellitus with foot ulcer (principal); L97.512 Non-pressure chronic ulcer of other part of right foot with fat layer exposed; L84 Corns and callosities; E11.22 Type 2 diabetes mellitus with diabetic chronic kidney disease; I13.11 Hypertensive heart and chronic kidney disease without heart failure, with stage 5 chronic kidney disease, or end stage renal disease; I50.9 Heart failure, unspecified; N18.6 End stage renal disease; E11.36 Type 2 diabetes mellitus with diabetic cataract; E11.21 Type 2 diabetes mellitus with diabetic nephropathy; E11.610 Type 2 diabetes mellitus with diabetic neuropathic arthropathy; I08.1 Rheumatic disorders of both mitral and tricuspid valves; I25.10 Atherosclerotic heart disease of native coronary artery without angina pectoris; E78.5 Hyperlipidemia, unspecified; Z99.2 Dependence on renal dialysis; Z90.49 Acquired absence of other specified parts of digestive tract; Z79.4 Long term (current) use of insulin; Z79.899 Other long term (current) drug therapy; Z89.411 Acquired absence of right great toe | CPT/HCPCS: 97597 ==

== ENCOUNTER → 2020-01-31 | Outpatient (CLI) | payer OTHER | END | disposition home or self-care (01) | LOC: WOUND 09:32 | PROVIDERS: ATTEND Internal Medicine | DX: E11.621 Type 2 diabetes mellitus with foot ulcer (principal); L97.512 Non-pressure chronic ulcer of other part of right foot with fat layer exposed; L84 Corns and callosities; E11.22 Type 2 diabetes mellitus with diabetic chronic kidney disease; I13.11 Hypertensive heart and chronic kidney disease without heart failure, with stage 5 chronic kidney disease, or end stage renal disease; I50.9 Heart failure, unspecified; N18.6 End stage renal disease; E11.36 Type 2 diabetes mellitus with diabetic cataract; E11.21 Type 2 diabetes mellitus with diabetic nephropathy; E11.610 Type 2 diabetes mellitus with diabetic neuropathic arthropathy; I08.1 Rheumatic disorders of both mitral and tricuspid valves; I25.10 Atherosclerotic heart disease of native coronary artery without angina pectoris; E78.5 Hyperlipidemia, unspecified; Z99.2 Dependence on renal dialysis; Z90.49 Acquired absence of other specified parts of digestive tract; Z79.4 Long term (current) use of insulin; Z79.899 Other long term (current) drug therapy; Z89.411 Acquired absence of right great toe | CPT/HCPCS: 97597 ==

== ENCOUNTER → 2020-02-14 | Outpatient (CLI) | payer OTHER | END | disposition home or self-care (01) | LOC: WOUND 08:47 | PROVIDERS: ATTEND Internal Medicine | DX: E11.621 Type 2 diabetes mellitus with foot ulcer (principal); L97.512 Non-pressure chronic ulcer of other part of right foot with fat layer exposed; L84 Corns and callosities; E11.22 Type 2 diabetes mellitus with diabetic chronic kidney disease; I13.11 Hypertensive heart and chronic kidney disease without heart failure, with stage 5 chronic kidney disease, or end stage renal disease; I50.9 Heart failure, unspecified; E11.36 Type 2 diabetes mellitus with diabetic cataract; E11.21 Type 2 diabetes mellitus with diabetic nephropathy; E11.610 Type 2 diabetes mellitus with diabetic neuropathic arthropathy; I08.1 Rheumatic disorders of both mitral and tricuspid valves; I25.10 Atherosclerotic heart disease of native coronary artery without angina pectoris; E78.5 Hyperlipidemia, unspecified; Z99.2 Dependence on renal dialysis; Z90.49 Acquired absence of other specified parts of digestive tract; Z79.4 Long term (current) use of insulin; Z79.899 Other long term (current) drug therapy; Z89.411 Acquired absence of right great toe | CPT/HCPCS: 97597 ==

== ENCOUNTER → 2020-02-22 | Outpatient (CLI) | payer OTHER ==
[~2020-02-22] MED LIST changes: +REGADENOSON 0.4 MG/5 ML SYRINGE ONE
== END | disposition home or self-care (01) ==
LOC: RAD 13:05
PROVIDERS: ATTEND Internal Medicine Cardiovascular Disease
DX: I34.0 Nonrheumatic mitral (valve) insufficiency (principal)
CPT/HCPCS: 78452; 93017; A9502; A9505; J2785

== ENCOUNTER 2020-02-28 09:21 | Outpatient (CLI) | payer OTHER ==
[~2020-02-28 09:21] MED LIST changes: -REGADENOSON 0.4 MG/5 ML SYRINGE ONE
== END 2020-02-28 23:59 | disposition home or self-care (01) ==
LOC: WOUND 09:21
PROVIDERS: ATTEND Internal Medicine
DX: E11.621 Type 2 diabetes mellitus with foot ulcer (principal); L97.512 Non-pressure chronic ulcer of other part of right foot with fat layer exposed; L84 Corns and callosities; E11.22 Type 2 diabetes mellitus with diabetic chronic kidney disease; I13.11 Hypertensive heart and chronic kidney disease without heart failure, with stage 5 chronic kidney disease, or end stage renal disease; I50.9 Heart failure, unspecified; N18.6 End stage renal disease; E11.36 Type 2 diabetes mellitus with diabetic cataract; E11.21 Type 2 diabetes mellitus with diabetic nephropathy; E11.610 Type 2 diabetes mellitus with diabetic neuropathic arthropathy; I08.1 Rheumatic disorders of both mitral and tricuspid valves; I25.10 Atherosclerotic heart disease of native coronary artery without angina pectoris; E78.5 Hyperlipidemia, unspecified; Z99.2 Dependence on renal dialysis; Z79.4 Long term (current) use of insulin; Z90.49 Acquired absence of other specified parts of digestive tract; Z79.899 Other long term (current) drug therapy; Z89.411 Acquired absence of right great toe
CPT/HCPCS: 97597

== ENCOUNTER → 2020-03-07 | Outpatient (CLI) | payer OTHER | END | disposition home or self-care (01) | LOC: WOUND 14:13 | PROVIDERS: ATTEND Podiatrist Foot & Ankle Surgery | DX: E11.621 Type 2 diabetes mellitus with foot ulcer (principal); L97.512 Non-pressure chronic ulcer of other part of right foot with fat layer exposed; L84 Corns and callosities; E11.22 Type 2 diabetes mellitus with diabetic chronic kidney disease; I13.11 Hypertensive heart and chronic kidney disease without heart failure, with stage 5 chronic kidney disease, or end stage renal disease; I50.9 Heart failure, unspecified; N18.6 End stage renal disease; E11.36 Type 2 diabetes mellitus with diabetic cataract; E11.21 Type 2 diabetes mellitus with diabetic nephropathy; E11.610 Type 2 diabetes mellitus with diabetic neuropathic arthropathy; I08.1 Rheumatic disorders of both mitral and tricuspid valves; I25.10 Atherosclerotic heart disease of native coronary artery without angina pectoris; E78.5 Hyperlipidemia, unspecified; Z99.2 Dependence on renal dialysis; Z79.4 Long term (current) use of insulin; Z90.49 Acquired absence of other specified parts of digestive tract; Z79.899 Other long term (current) drug therapy; Z89.411 Acquired absence of right great toe | CPT/HCPCS: 97597 ==

== ENCOUNTER 2020-03-13 10:24 | Outpatient (CLI) | payer OTHER | END 2020-03-13 23:59 | disposition home or self-care (01) | LOC: WOUND 10:24 | PROVIDERS: ATTEND Podiatrist Foot & Ankle Surgery | DX: E11.621 Type 2 diabetes mellitus with foot ulcer (principal); L97.512 Non-pressure chronic ulcer of other part of right foot with fat layer exposed; L84 Corns and callosities; E11.22 Type 2 diabetes mellitus with diabetic chronic kidney disease; I13.11 Hypertensive heart and chronic kidney disease without heart failure, with stage 5 chronic kidney disease, or end stage renal disease; I50.9 Heart failure, unspecified; N18.6 End stage renal disease; E11.36 Type 2 diabetes mellitus with diabetic cataract; E11.21 Type 2 diabetes mellitus with diabetic nephropathy; E11.610 Type 2 diabetes mellitus with diabetic neuropathic arthropathy; I08.1 Rheumatic disorders of both mitral and tricuspid valves; I25.10 Atherosclerotic heart disease of native coronary artery without angina pectoris; E78.5 Hyperlipidemia, unspecified; Z99.2 Dependence on renal dialysis; Z79.4 Long term (current) use of insulin; Z90.49 Acquired absence of other specified parts of digestive tract; Z79.899 Other long term (current) drug therapy; Z89.411 Acquired absence of right great toe | CPT/HCPCS: 97597 ==

== ENCOUNTER → 2020-03-20 | Outpatient (CLI) | payer OTHER | END | disposition home or self-care (01) | LOC: WOUND 09:07 | PROVIDERS: ATTEND Internal Medicine | DX: E11.621 Type 2 diabetes mellitus with foot ulcer (principal); L97.512 Non-pressure chronic ulcer of other part of right foot with fat layer exposed; L84 Corns and callosities; E11.22 Type 2 diabetes mellitus with diabetic chronic kidney disease; I13.11 Hypertensive heart and chronic kidney disease without heart failure, with stage 5 chronic kidney disease, or end stage renal disease; I50.9 Heart failure, unspecified; N18.6 End stage renal disease; E11.36 Type 2 diabetes mellitus with diabetic cataract; E11.21 Type 2 diabetes mellitus with diabetic nephropathy; E11.610 Type 2 diabetes mellitus with diabetic neuropathic arthropathy; I08.1 Rheumatic disorders of both mitral and tricuspid valves; I25.10 Atherosclerotic heart disease of native coronary artery without angina pectoris; E78.5 Hyperlipidemia, unspecified; Z99.2 Dependence on renal dialysis; Z79.4 Long term (current) use of insulin; Z90.49 Acquired absence of other specified parts of digestive tract; Z79.899 Other long term (current) drug therapy; Z89.411 Acquired absence of right great toe | CPT/HCPCS: 11042 ==

== ENCOUNTER 2020-03-27 10:23 | Outpatient (CLI) | payer OTHER ==
[2020-04-23] MEDS ORDERED: ROPI2TAB8 PO (12:33)
== END 2020-03-27 23:59 | disposition home or self-care (01) ==
LOC: WOUND 10:23
PROVIDERS: ATTEND Internal Medicine
DX: E11.621 Type 2 diabetes mellitus with foot ulcer (principal); L97.512 Non-pressure chronic ulcer of other part of right foot with fat layer exposed; L84 Corns and callosities; E11.22 Type 2 diabetes mellitus with diabetic chronic kidney disease; I13.11 Hypertensive heart and chronic kidney disease without heart failure, with stage 5 chronic kidney disease, or end stage renal disease; I50.42 Chronic combined systolic (congestive) and diastolic (congestive) heart failure; N18.6 End stage renal disease; D63.8 Anemia in other chronic diseases classified elsewhere; E11.36 Type 2 diabetes mellitus with diabetic cataract; E11.21 Type 2 diabetes mellitus with diabetic nephropathy; E11.610 Type 2 diabetes mellitus with diabetic neuropathic arthropathy; I08.1 Rheumatic disorders of both mitral and tricuspid valves; I25.10 Atherosclerotic heart disease of native coronary artery without angina pectoris; E78.5 Hyperlipidemia, unspecified; Z99.2 Dependence on renal dialysis; Z79.4 Long term (current) use of insulin; Z90.49 Acquired absence of other specified parts of digestive tract; Z79.899 Other long term (current) drug therapy; Z89.411 Acquired absence of right great toe; Z95.2 Presence of prosthetic heart valve
CPT/HCPCS: 99213

== ENCOUNTER → 2020-04-19 | Outpatient (CLI) | payer OTHER ==
[~2020-04-19] MED LIST changes: +ROPI2TAB8 PO
== END | disposition home or self-care (01) ==
LOC: STAR 08:00
PROVIDERS: ATTEND Thoracic Surgery (Cardiothoracic Vascular Surgery)
DX: Z01.818 Encounter for other preprocedural examination (principal); Z11.59 Encounter for screening for other viral diseases
CPT/HCPCS: 36415; 87635

== ENCOUNTER 2020-04-24 04:48 | Inpatient (IN) | payer OTHER ==
[2020-04-23 12:42] LABS: MICROSCOPIC AUTO
[2020-04-23 12:59] LABS: BASOPHILS # (AUTO) 0.03 x10^3/uL (0-0.1); BASOPHILS % (AUTO) 0 % (0-1); EOSINOPHILS # (AUTO) 0.12 x10^3/uL (0-0.4); EOSINOPHILS % (AUTO) 2 % (1-7); LYMPHOCYTES # (AUTO) 1.57 x10^3/uL (1-3.4); LYMPHOCYTES % (AUTO) 22 % (22-44); MD NO; MEAN CORPUSCULAR HEMOGLOBIN 31.4 pg (27.5-34.5); MEAN CORPUSCULAR HGB CONC 31.8 g/dL (33.2-36.2); MEAN CORPUSCULAR VOLUME 98.6 fL (81-97); MEAN PLATELET VOLUME 7.3 fL (7.4-10.4); MONOCYTES # (AUTO) 0.62 x10^3/uL (0.2-0.8); MONOCYTES % (AUTO) 9 % (2-9); NEUTROPHILS # (AUTO) 4.87 x10^3/uL (1.8-6.8); NEUTROPHILS % (AUTO) 68 % (42-75); PLATELET COUNT 205 x10^3/uL (130-400); RED BLOOD COUNT 3.48 x10^6/uL (4.38-5.82); RED CELL DISTRIBUTION WIDTH 14.4 % (9.4-14.8)
[2020-04-23 13:05] LABS: INTERNATIONAL NORMALIZED RATIO 1.01 (0.93-1.1); PROTHROMBIN TIME 10.7 Seconds (9.6-11.5)
[2020-04-23 13:09] LABS: ALANINE AMINOTRANSFERASE 18 U/L (12-78); ALBUMIN 3.5 g/dL (3.4-5.0); ANION GAP 10 mmol/L (5-15); CALCIUM 8.6 mg/dL (8.5-10.1); CHLORIDE 101 mmol/L (98-107)
[2020-04-23 13:11] LABS: ALKALINE PHOSPHATASE 124 U/L (45-117); BILIRUBIN,TOTAL 0.5 mg/dL (0.2-1.0); TOTAL PROTEIN 7.5 g/dL (6.4-8.2)
[~2020-04-24] VITALS: Ht 172.7 cm; Wt 97.2 kg
[2020-04-24] MEDS ORDERED: INSULIN LISPRO 100 UNITS/ML, PEN SQ-INSULIN SCH (05:00)
[2020-04-24 05:01] VITALS: BP 157/88
[2020-04-24] MEDS ORDERED: DO NOT GIVE MC SCH (05:30)
[2020-04-24] MEDS ORDERED: CHLORHEXIDINE 15 ML UDC MM SCH (05:30)
[2020-04-24] MEDS ORDERED: PAPAVERINE 30 MG/ML, 2ML ONE (06:34)
[2020-04-24] MEDS ORDERED: HEPARIN 1,000 UNITS/ML, 10ML ONE (06:34)
[2020-04-24] MEDS ORDERED: MIDAZOLAM 10MG/2 ML ONE (06:37)
[2020-04-24] MEDS ORDERED: FENTANYL PF 250 MCG/5ML ONE ×5 (06:38→12:14)
[2020-04-24] MEDS ORDERED: AMINOCAPROIC ACID 250 MG/ML, 20ML ONE ×2 (06:41)
[2020-04-24] MEDS ORDERED: PHENYLEPHRINE 50 MG in SODIUM CHLORIDE 0.9% 245 ML IV PRN ×2 (07:30→08:12)
[2020-04-24] MEDS ORDERED: ALBUMIN HUMAN 5% 500 ML IV PRN (07:30)
[2020-04-24] MEDS ORDERED: EPINEPHRINE 5 MG in SODIUM CHLORIDE 0.9% 245 ML IV PRN ×2 (07:30→08:30)
[2020-04-24] MEDS ORDERED: VANCOMYCIN 1,400 MG in SODIUM CHLORIDE 0.9% 250 ML IV PRN (07:30)
[2020-04-24] MEDS ORDERED: DEXMEDETOMIDINE 200 MCG in SODIUM CHLORIDE 0.9% 48 ML IV PRN ×2 (07:30→08:12)
[2020-04-24] MEDS ORDERED: REGULAR INSULIN 100 UNITS in SODIUM CHLORIDE 0.9% 99 ML IV PRN ×2 (07:30→08:12)
[2020-04-24] MEDS ORDERED: MANNITOL PMX 20% 500 ML IVPB PRN (07:30)
[2020-04-24] MEDS ORDERED: POTASSIUM CHLORIDE 80 MEQ, SODIUM BICARBONATE 8.4% 10 MEQ, MAGNESIUM SULFATE 0.5 GM, LI... IV PRN (07:30)
[2020-04-24] MEDS ORDERED: SODIUM CHLORIDE 0.9% 1,000 ML IV PRN (08:12)
[2020-04-24] MEDS ORDERED: DOBUTAMINE 250 MG in SODIUM CHLORIDE 0.9% 230 ML IV PRN (08:12)
[2020-04-24] MEDS ORDERED: NITROGLYCERIN/D5W PMX 250 ML IV PRN (08:12)
[2020-04-24] MEDS ORDERED: VASOPRESSIN 20 UNIT in SODIUM CHLORIDE 0.9% 99 ML IV PRN (08:12)
[2020-04-24] MEDS ORDERED: DEXTROSE 4 GM TAB.CHEW PO PRN (08:30)
[2020-04-24] MEDS ORDERED: PROCHLORPERAZINE 5 MG/ML, 2ML IVPush PRN (08:30)
[2020-04-24] MEDS ORDERED: LACTATED RINGERS 1,000 ML IV PRN (08:30)
[2020-04-24] MEDS ORDERED: CEFUROXIME 1.5 GM in SODIUM CHLORIDE 0.9% 50 ML IVPB SCH (08:30)
[2020-04-24] MEDS ORDERED: ONDANSETRON 2MG/ML, 2ML IVPush PRN (08:30)
[2020-04-24] MEDS ORDERED: DEXTROSE 50%, 50ML SYRINGE IVPush PRN (08:30)
[2020-04-24] MEDS ORDERED: ACETAMINOPHEN 650 MG SUPP PR PRN (08:30)
[2020-04-24] MEDS ORDERED: MIDAZOLAM 1 MG/ML, 5ML IVPush PRN (08:30)
[2020-04-24] MEDS ORDERED: INSULIN REGULAR 100 UNITS/ML, 3ML VIAL IVPush PRN (08:30)
[2020-04-24] MEDS ORDERED: GLUCAGON 1 MG IM PRN (08:30)
[2020-04-24] MEDS ORDERED: SODIUM BICARB 8.4%, 50ML SYRINGE IV PRN (08:30)
[2020-04-24] MEDS ORDERED: BISACODYL 10 MG SUPP PR PRN (08:30)
[2020-04-24] MEDS ORDERED: OXYcodone IR 5MG TABLET PO PRN (08:30)
[2020-04-24] MEDS ORDERED: FENTANYL PF 100 MCG/2ML IVPush PRN (08:30)
[2020-04-24] MEDS: MUPIROCIN OINT 2%, 22GM NAS SCH ×2 (09:00→21:00)
[2020-04-24] MEDS ORDERED: MUPIROCIN OINT 2%, 22GM TP SCH (09:00)
[2020-04-24] MEDS: DOCUSATE 100 MG CAPSULE PO SCH ×2 (09:00→22:05)
[2020-04-24] MEDS ORDERED: SODIUM CHLORIDE FLUSH 10ML SYR IVF SCH (09:00)
[2020-04-24] MEDS ORDERED: PROPOFOL 10 MG/ML, 20ML ONE (12:15)
[2020-04-24] MEDS ORDERED: ROCURONIUM 10MG/ML,5ML ONE ×3 (12:15)
[2020-04-24] MEDS ORDERED: EPINEPHRINE 1 MG/ML, 1ML ONE (12:15)
[2020-04-24] MEDS ORDERED: PHENYLEPHRINE 10 MG/ML ONE (12:15)
[2020-04-24] MEDS ORDERED: CALCIUM CHLORIDE 10%, 10ML SYR ONE (12:16)
[2020-04-24] MEDS ORDERED: VASOPRESSIN 20 UNIT/ML, 1ML ONE (12:16)
[2020-04-24] MEDS ORDERED: ALBUMIN HUMAN 25% 50 ML ONE ×2 (12:32→12:33)
[2020-04-24] MEDS ORDERED: LIDOCAINE 2%, 20ML ONE (12:33)
[2020-04-24] MEDS ORDERED: SODIUM BICARBONATE 1 MEQ/ML, 50ML VIAL ONE (12:34)
[2020-04-24] MEDS ORDERED: methylPREDNISolone SOD SUCC 125 MG/2 ML ONE (12:34)
[2020-04-24] MEDS ORDERED: HEPARIN 1,000 UNITS/ML, 30ML ONE ×4 (12:35→12:36)
[2020-04-24 12:45] LABS: GLUCOSE BY BLOOD GAS ANALYZER 121 mg/dL (70-110); HEMOGLOBIN BY BLOOD GAS ANALYZ 9.2 g/dL (14.0-18.0); POTASSIUM BY BLOOD GAS ANALYZR 4.3 mmol/L (3.6-5.5)
[2020-04-24] MEDS: MAGNESIUM SULFATE 1 GM in SODIUM CHLORIDE 0.9% 100 ML IVPB SCH (12:59)
[2020-04-24 13:00] LABS: INTERNATIONAL NORMALIZED RATIO 1.21 (0.93-1.1); PROTHROMBIN TIME 12.8 Seconds (9.6-11.5)
[2020-04-24] MEDS: KSCALE TO 4.5 IV SCH ×3 (13:00→20:30)
[2020-04-24] MEDS: INSULIN LISPRO 100 UNITS/ML, PEN SQ-INSULIN SCH ×3 (13:01→21:00)
[2020-04-24] MEDS: HYDROcodone/APAP 5/325 TABLET PO PRN (16:40)
[2020-04-24] MEDS ORDERED: VANCOMYCIN 1,300 MG in SODIUM CHLORIDE 0.9% 250 ML IVPB SCH (17:00)
[2020-04-24] MEDS: HYDROcodone/APAP 10/325 MG TABLET PO PRN (18:17)
[2020-04-24] MEDS: SODIUM CHLORIDE FLUSH 10ML SYR IVF SCH (21:44)
[2020-04-25] MEDS: ACETAMINOPHEN 325 MG TABLET PO PRN ×2 (01:55→21:27)
[2020-04-25] MEDS: KSCALE TO 4.5 IV SCH (02:30)
[2020-04-25 04:00] VITALS: BP 122/53
[2020-04-25 04:55] LABS: BASOPHILS % (AUTO) 0 % (0-1); EOSINOPHILS % (AUTO) 0 % (1-7); LYMPHOCYTES # (AUTO) 0.51 x10^3/uL (1-3.4); LYMPHOCYTES % (AUTO) 6 % (22-44); MD NO; MEAN CORPUSCULAR HEMOGLOBIN 32.1 pg (27.5-34.5); MEAN CORPUSCULAR HGB CONC 32.7 g/dL (33.2-36.2); MEAN CORPUSCULAR VOLUME 98.1 fL (81-97); MONOCYTES # (AUTO) 0.58 x10^3/uL (0.2-0.8); MONOCYTES % (AUTO) 6 % (2-9); NEUTROPHILS # (AUTO) 8.08 x10^3/uL (1.8-6.8); NEUTROPHILS % (AUTO) 88 % (42-75); PLATELET COUNT 128 x10^3/uL (130-400); RED BLOOD COUNT 2.62 x10^6/uL (4.38-5.82); RED CELL DISTRIBUTION WIDTH 15.3 % (9.4-14.8)
[2020-04-25 05:06] LABS: INTERNATIONAL NORMALIZED RATIO 1.02 (0.93-1.1); PROTHROMBIN TIME 10.8 Seconds (9.6-11.5)
[2020-04-25 05:07] LABS: ALBUMIN 3.2 g/dL (3.4-5.0); ANION GAP 8 mmol/L (5-15); CALCIUM 8.5 mg/dL (8.5-10.1); CHLORIDE 104 mmol/L (98-107); CREATININE 7.58 mg/dL (0.7-1.3)
[2020-04-25] MEDS: HYDROcodone/APAP 5/325 TABLET PO PRN ×3 (05:27→18:37)
[2020-04-25] MEDS: INSULIN LISPRO 100 UNITS/ML, PEN SQ-INSULIN SCH ×4 (07:00→21:28)
[2020-04-25] MEDS ORDERED: CEFUROXIME 1.5 GM in SODIUM CHLORIDE 0.9% 50 ML IVPB PRN (07:30)
[2020-04-25] MEDS ORDERED: MAGNESIUM HYDROXIDE 8%, 30ML UDC PO PRN (08:30)
[2020-04-25] MEDS ORDERED: HALOPERIDOL 5 MG/ML IV PRN (08:30)
[2020-04-25] MEDS: WARFARIN BIOPROSTHETIC VALVE PROTOCOL 2-3 XX SCH (09:00)
[2020-04-25] MEDS: SODIUM CHLORIDE FLUSH 10ML SYR IVF SCH ×3 (09:14→21:25)
[2020-04-25] MEDS: HYDROcodone/APAP 10/325 MG TABLET PO PRN (09:14)
[2020-04-25] MEDS: MUPIROCIN OINT 2%, 22GM NAS SCH ×2 (09:15→21:27)
[2020-04-25] MEDS: MAGNESIUM SULFATE 1 GM in SODIUM CHLORIDE 0.9% 100 ML IVPB SCH (11:00)
[2020-04-25] MEDS: CARVEDILOL 3.125 MG TABLET PO SCH ×2 (12:04→21:26)
[2020-04-25] MEDS: ASPIRIN 81 MG TABLET EC PO SCH (12:05)
[2020-04-25] MEDS: CHLORHEXIDINE 15 ML UDC MM SCH ×2 (12:05→21:27)
[2020-04-25] MEDS: DOCUSATE 100 MG CAPSULE PO SCH ×2 (12:05→21:27)
[2020-04-25] MEDS: LOSARTAN 25MG TABLET PO SCH (12:05)
[2020-04-25] MEDS ORDERED: VANCOMYCIN 1,300 MG in SODIUM CHLORIDE 0.9% 250 ML IVPB ONE (14:00)
[2020-04-25 16:48] VITALS: BP 110/70
[2020-04-25] MEDS ORDERED: WARFARIN 10 MG TABLET PO-COUM ONE (18:00)
[2020-04-25 18:44] VITALS: BP 108/67
[2020-04-25] MEDS: BISACODYL 5 MG EC TABLET PO PRN (21:27)
[2020-04-25] MEDS: ATORVASTATIN 20 MG TABLET PO SCH (21:27)
[2020-04-26] MEDS: HYDROcodone/APAP 5/325 TABLET PO PRN (00:11)
[2020-04-26] MEDS: ONDANSETRON 2MG/ML, 2ML IVPush PRN ×2 (00:12→12:14)
[2020-04-26 01:09] VITALS: BP 103/67
[2020-04-26] MEDS: ACETAMINOPHEN 325 MG TABLET PO PRN ×3 (03:27→15:40)
[2020-04-26 06:40] LABS: BASOPHILS # (AUTO) 0.03 x10^3/uL (0-0.1); BASOPHILS % (AUTO) 0 % (0-1); EOSINOPHILS # (AUTO) 0.02 x10^3/uL (0-0.4); EOSINOPHILS % (AUTO) 0 % (1-7); LYMPHOCYTES % (AUTO) 12 % (22-44); MD NO; MEAN CORPUSCULAR HEMOGLOBIN 31.5 pg (27.5-34.5); MEAN CORPUSCULAR HGB CONC 31.8 g/dL (33.2-36.2); MEAN CORPUSCULAR VOLUME 99.1 fL (81-97); MEAN PLATELET VOLUME 8.4 fL (7.4-10.4); MONOCYTES # (AUTO) 1.04 x10^3/uL (0.2-0.8); MONOCYTES % (AUTO) 11 % (2-9); NEUTROPHILS # (AUTO) 7.01 x10^3/uL (1.8-6.8); NEUTROPHILS % (AUTO) 76 % (42-75); PLATELET COUNT 122 x10^3/uL (130-400); RED BLOOD COUNT 2.53 x10^6/uL (4.38-5.82); RED CELL DISTRIBUTION WIDTH 15.2 % (9.4-14.8)
[2020-04-26 06:47] LABS: INTERNATIONAL NORMALIZED RATIO 1.04 (0.93-1.1)
[2020-04-26 06:56] LABS: CHLORIDE 99 mmol/L (98-107)
[2020-04-26] MEDS: INSULIN LISPRO 100 UNITS/ML, PEN SQ-INSULIN SCH ×4 (07:00→20:27)
[2020-04-26 07:02] LABS: ANION GAP 10 mmol/L (5-15); CALCIUM 8.8 mg/dL (8.5-10.1); CREATININE 6.82 mg/dL (0.7-1.3)
[2020-04-26 07:25] VITALS: BP 125/72
[2020-04-26] MEDS: CHLORHEXIDINE 15 ML UDC MM SCH ×2 (08:53→20:25)
[2020-04-26] MEDS: DOCUSATE 100 MG CAPSULE PO SCH ×2 (08:54→20:23)
[2020-04-26] MEDS: MUPIROCIN OINT 2%, 22GM NAS SCH ×2 (08:54→20:23)
[2020-04-26] MEDS: LOSARTAN 25MG TABLET PO SCH (08:54)
[2020-04-26] MEDS: ASPIRIN 81 MG TABLET EC PO SCH (08:54)
[2020-04-26] MEDS: CARVEDILOL 3.125 MG TABLET PO SCH ×2 (08:55→20:24)
[2020-04-26] MEDS: SODIUM CHLORIDE FLUSH 10ML SYR IVF SCH ×4 (08:55→20:26)
[2020-04-26] MEDS: WARFARIN BIOPROSTHETIC VALVE PROTOCOL 2-3 XX SCH (09:00)
[2020-04-26] MEDS: MAGNESIUM SULFATE 1 GM in SODIUM CHLORIDE 0.9% 100 ML IVPB SCH (11:00)
[2020-04-26 12:21] VITALS: BP 99/64
[2020-04-26] MEDS: SEVELAMER CARBONATE 800MG TAB PO SCH ×2 (12:59→18:29)
[2020-04-26] MEDS ORDERED: WARFARIN 7.5 MG TABLET PO-COUM ONE (18:00)
[2020-04-26 19:09] VITALS: BP 106/65
[2020-04-26] MEDS: ATORVASTATIN 20 MG TABLET PO SCH (20:23)
[2020-04-26] MEDS: HYDROcodone/APAP 10/325 MG TABLET PO PRN (20:24)
[2020-04-26] MEDS: BISACODYL 5 MG EC TABLET PO PRN (20:24)
[2020-04-26] MEDS ORDERED: DIPHENHYDRAMINE 25 MG CAPSULE PO ONE (21:00)
[2020-04-26] MEDS ORDERED: ZOLPIDEM 5MG TABLET PO ONE (22:00)
[2020-04-27 01:25] VITALS: BP 119/73
[2020-04-27 05:45] LABS: BASOPHILS # (AUTO) 0.03 x10^3/uL (0-0.1); BASOPHILS % (AUTO) 0 % (0-1); EOSINOPHILS # (AUTO) 0.08 x10^3/uL (0-0.4); EOSINOPHILS % (AUTO) 1 % (1-7); LYMPHOCYTES # (AUTO) 1.26 x10^3/uL (1-3.4); LYMPHOCYTES % (AUTO) 18 % (22-44); MD NO; MEAN CORPUSCULAR HEMOGLOBIN 31.8 pg (27.5-34.5); MEAN CORPUSCULAR HGB CONC 32.4 g/dL (33.2-36.2); MEAN CORPUSCULAR VOLUME 98.1 fL (81-97); MEAN PLATELET VOLUME 8.8 fL (7.4-10.4); MONOCYTES # (AUTO) 0.72 x10^3/uL (0.2-0.8); MONOCYTES % (AUTO) 10 % (2-9); NEUTROPHILS # (AUTO) 4.87 x10^3/uL (1.8-6.8); NEUTROPHILS % (AUTO) 70 % (42-75); PLATELET COUNT 111 x10^3/uL (130-400); RED CELL DISTRIBUTION WIDTH 14.9 % (9.4-14.8)
[2020-04-27] MEDS: ONDANSETRON 2MG/ML, 2ML IVPush PRN (05:54)
[2020-04-27 05:55] LABS: ANION GAP 10 mmol/L (5-15); CALCIUM 8.8 mg/dL (8.5-10.1); CHLORIDE 99 mmol/L (98-107)
[2020-04-27 05:56] LABS: CREATININE 8.96 mg/dL (0.7-1.3)
[2020-04-27] MEDS: INSULIN LISPRO 100 UNITS/ML, PEN SQ-INSULIN SCH ×4 (07:00→21:00)
[2020-04-27 07:44] VITALS: BP 114/72
[2020-04-27] MEDS: WARFARIN BIOPROSTHETIC VALVE PROTOCOL 2-3 XX SCH (09:00)
[2020-04-27] MEDS: SODIUM CHLORIDE FLUSH 10ML SYR IVF SCH ×4 (09:00→22:53)
[2020-04-27 09:03] LABS: INTERNATIONAL NORMALIZED RATIO 1.21 (0.93-1.1); PROTHROMBIN TIME 12.8 Seconds (9.6-11.5)
[2020-04-27 09:10] VITALS: BP 111/72
[2020-04-27] MEDS: MUPIROCIN OINT 2%, 22GM NAS SCH ×2 (09:15→22:53)
[2020-04-27] MEDS: ASPIRIN 81 MG TABLET EC PO SCH (09:16)
[2020-04-27] MEDS: ACETAMINOPHEN 325 MG TABLET PO PRN ×3 (09:16→23:31)
[2020-04-27] MEDS: DOCUSATE 100 MG CAPSULE PO SCH ×2 (09:16→22:53)
[2020-04-27] MEDS: LOSARTAN 25MG TABLET PO SCH (09:16)
[2020-04-27] MEDS: CARVEDILOL 3.125 MG TABLET PO SCH ×2 (09:17→22:53)
[2020-04-27] MEDS: SEVELAMER CARBONATE 800MG TAB PO SCH ×3 (09:17→17:00)
[2020-04-27 12:53] VITALS: BP 116/71
[2020-04-27] MEDS ORDERED: ARANESP 100 MCG/ML **ESRD SQ SCH (15:30)
[2020-04-27] MEDS ORDERED: WARFARIN 7.5 MG TABLET PO-COUM ONE (18:00)
[2020-04-27] MEDS ORDERED: ZOLPIDEM 5MG TABLET PO ONE (21:00)
[2020-04-27] MEDS: ATORVASTATIN 20 MG TABLET PO SCH (22:52)
[2020-04-27 22:55] VITALS: BP 126/76
[2020-04-28] MEDS: HYDROcodone/APAP 5/325 TABLET PO PRN ×2 (00:31→21:08)
[2020-04-28 01:02] VITALS: BP 117/73
[2020-04-28] MEDS: HYDROcodone/APAP 10/325 MG TABLET PO PRN (03:33)
[2020-04-28] MEDS: ONDANSETRON 2MG/ML, 2ML IVPush PRN ×3 (03:34→11:11)
[2020-04-28 04:00] LABS: BASOPHILS # (AUTO) 0.07 x10^3/uL (0-0.1); BASOPHILS % (AUTO) 1 % (0-1); EOSINOPHILS # (AUTO) 0.08 x10^3/uL (0-0.4); EOSINOPHILS % (AUTO) 1 % (1-7); LYMPHOCYTES # (AUTO) 1.09 x10^3/uL (1-3.4); LYMPHOCYTES % (AUTO) 17 % (22-44); MD NO; MEAN CORPUSCULAR HEMOGLOBIN 32.1 pg (27.5-34.5); MEAN CORPUSCULAR HGB CONC 32.4 g/dL (33.2-36.2); MEAN PLATELET VOLUME 8.6 fL (7.4-10.4); MONOCYTES # (AUTO) 0.56 x10^3/uL (0.2-0.8); MONOCYTES % (AUTO) 9 % (2-9); NEUTROPHILS # (AUTO) 4.51 x10^3/uL (1.8-6.8); NEUTROPHILS % (AUTO) 71 % (42-75); PLATELET COUNT 141 x10^3/uL (130-400); RED BLOOD COUNT 2.63 x10^6/uL (4.38-5.82); RED CELL DISTRIBUTION WIDTH 15.2 % (9.4-14.8)
[2020-04-28 04:06] LABS: ANION GAP 8 mmol/L (5-15); CALCIUM 8.7 mg/dL (8.5-10.1); CHLORIDE 101 mmol/L (98-107); CREATININE 7.04 mg/dL (0.7-1.3)
[2020-04-28 04:12] LABS: INTERNATIONAL NORMALIZED RATIO 1.74 (0.93-1.1); PROTHROMBIN TIME 18.6 Seconds (9.6-11.5)
[2020-04-28 07:00] VITALS: BP 112/67
[2020-04-28] MEDS: INSULIN LISPRO 100 UNITS/ML, PEN SQ-INSULIN SCH ×4 (07:00→20:51)
[2020-04-28] MEDS: MUPIROCIN OINT 2%, 22GM NAS SCH ×2 (08:25→20:46)
[2020-04-28] MEDS: ASPIRIN 81 MG TABLET EC PO SCH (08:26)
[2020-04-28] MEDS: CARVEDILOL 3.125 MG TABLET PO SCH ×2 (08:26→20:46)
[2020-04-28] MEDS: SEVELAMER CARBONATE 800MG TAB PO SCH ×4 (08:26→17:00)
[2020-04-28] MEDS: LOSARTAN 25MG TABLET PO SCH (08:26)
[2020-04-28] MEDS: DOCUSATE 100 MG CAPSULE PO SCH ×2 (08:27→20:37)
[2020-04-28] MEDS: WARFARIN BIOPROSTHETIC VALVE PROTOCOL 2-3 XX SCH (09:00)
[2020-04-28] MEDS: SODIUM CHLORIDE FLUSH 10ML SYR IVF SCH ×4 (09:00→20:47)
[2020-04-28] MEDS ORDERED: CARV3.1212 PO (09:21)
[2020-04-28] MEDS ORDERED: SEVE800T8 PO (09:21)
[2020-04-28] MEDS ORDERED: ONDA4TAB7 PO (09:21)
[2020-04-28] MEDS ORDERED: ASPI81TA45 PO (09:21)
[2020-04-28] MEDS ORDERED: HYDR-3237 PO (09:21)
[2020-04-28] MEDS ORDERED: WARF5TAB2 PO (09:21)
[2020-04-28] MEDS ORDERED: ATOR20TA37 PO (09:21)
[2020-04-28 11:58] VITALS: BP 104/86
[2020-04-28 12:27] VITALS: BP 99/64
[2020-04-28] MEDS ORDERED: WARFARIN 5 MG TABLET PO-COUM ONE (18:00)
[2020-04-28 18:37] VITALS: BP 132/84
[2020-04-28] MEDS: ACETAMINOPHEN 325 MG TABLET PO PRN (18:43)
[2020-04-28 20:43] VITALS: BP 114/72
[2020-04-28] MEDS: ATORVASTATIN 20 MG TABLET PO SCH (20:46)
[2020-04-28] MEDS ORDERED: ACETAMINOPHEN 325 MG TABLET PO PRN (21:00)
[2020-04-29 00:37] VITALS: BP 106/76
[2020-04-29] MEDS: ACETAMINOPHEN 325 MG TABLET PO PRN ×2 (04:00→13:34)
[2020-04-29 05:39] LABS: INTERNATIONAL NORMALIZED RATIO 2.79 (0.93-1.1); PROTHROMBIN TIME 29.9 Seconds (9.6-11.5)
[2020-04-29 05:42] LABS: BASOPHILS # (AUTO) 0.05 x10^3/uL (0-0.1); BASOPHILS % (AUTO) 1 % (0-1); EOSINOPHILS # (AUTO) 0.14 x10^3/uL (0-0.4); EOSINOPHILS % (AUTO) 2 % (1-7); LYMPHOCYTES # (AUTO) 1.68 x10^3/uL (1-3.4); LYMPHOCYTES % (AUTO) 25 % (22-44); MD NO; MEAN CORPUSCULAR HGB CONC 33.4 g/dL (33.2-36.2); MEAN CORPUSCULAR VOLUME 98.6 fL (81-97); MONOCYTES % (AUTO) 12 % (2-9); NEUTROPHILS # (AUTO) 4.21 x10^3/uL (1.8-6.8); NEUTROPHILS % (AUTO) 61 % (42-75); PLATELET COUNT 143 x10^3/uL (130-400); RED BLOOD COUNT 2.67 x10^6/uL (4.38-5.82)
[2020-04-29 05:48] LABS: ANION GAP 10 mmol/L (5-15); CHLORIDE 99 mmol/L (98-107); CREATININE 9.36 mg/dL (0.7-1.3)
[2020-04-29] MEDS: INSULIN LISPRO 100 UNITS/ML, PEN SQ-INSULIN SCH ×3 (07:00→16:00)
[2020-04-29 07:19] VITALS: BP 121/73
[2020-04-29] MEDS: WARFARIN BIOPROSTHETIC VALVE PROTOCOL 2-3 XX SCH (08:20)
[2020-04-29] MEDS: LOSARTAN 25MG TABLET PO SCH (08:23)
[2020-04-29] MEDS: DOCUSATE 100 MG CAPSULE PO SCH (08:23)
[2020-04-29] MEDS: SODIUM CHLORIDE FLUSH 10ML SYR IVF SCH ×2 (08:24)
[2020-04-29] MEDS: ASPIRIN 81 MG TABLET EC PO SCH (08:24)
[2020-04-29] MEDS: CARVEDILOL 3.125 MG TABLET PO SCH (08:24)
[2020-04-29] MEDS: SEVELAMER CARBONATE 800MG TAB PO SCH ×2 (08:29→12:06)
[2020-04-29 15:00] VITALS: BP 141/80
[2020-04-29] MEDS ORDERED: WARFARIN 2 MG TABLET PO-COUM ONE (18:00)
== END 2020-04-29 16:30 | disposition home health service (06) | DRG 219 ==
LOC: 5SO 04:48 → CSU 08:34 → 5SO 04-25 16:42 → DCLOUNGE 04-29 16:25
PROVIDERS: ADMIT Thoracic Surgery (Cardiothoracic Vascular Surgery); ATTEND Thoracic Surgery (Cardiothoracic Vascular Surgery)
PROC: 02100Z9 Bypass Coronary Artery, One Artery from Left Internal Mammary, Open Approach (ICD-10-PCS; 2020-04-24)
PROC: 3E080GC Introduction of Other Therapeutic Substance into Heart, Open Approach (ICD-10-PCS; 2020-04-24)
PROC: 5A1221Z Performance of Cardiac Output, Continuous (ICD-10-PCS; 2020-04-24)
PROC: B246ZZ4 Ultrasonography of Right and Left Heart, Transesophageal (ICD-10-PCS; 2020-04-24)
PROC: 30233Q1 Transfusion of Nonautologous White Cells into Peripheral Vein, Percutaneous Approach (ICD-10-PCS; 2020-04-24)
PROC: 02UG08Z Supplement Mitral Valve with Zooplastic Tissue, Open Approach (ICD-10-PCS; principal; 2020-04-24 07:30)
DX: I25.10 Atherosclerotic heart disease of native coronary artery without angina pectoris (principal); N18.6 End stage renal disease; I50.42 Chronic combined systolic (congestive) and diastolic (congestive) heart failure; I13.2 Hypertensive heart and chronic kidney disease with heart failure and with stage 5 chronic kidney disease, or end stage renal disease; D63.1 Anemia in chronic kidney disease; E11.22 Type 2 diabetes mellitus with diabetic chronic kidney disease; E11.69 Type 2 diabetes mellitus with other specified complication; E83.41 Hypermagnesemia; F41.9 Anxiety disorder, unspecified; G25.81 Restless legs syndrome; I08.1 Rheumatic disorders of both mitral and tricuspid valves; D69.6 Thrombocytopenia, unspecified; I25.5 Ischemic cardiomyopathy; Z79.4 Long term (current) use of insulin; Z86.2 Personal history of diseases of the blood and blood-forming organs and certain disorders involving the immune mechanism; Z89.429 Acquired absence of other toe(s), unspecified side; Z95.2 Presence of prosthetic heart valve; Z99.2 Dependence on renal dialysis; Z79.899 Other long term (current) drug therapy
CPT/HCPCS: 36415; 36600; 74018; J3490; S0017; 71045; 71046; 80048; 80053; 80202; 81001; 82040; 82330; 82800; 82803; 82810; 82947; 82962; 83036; 83735; 84132; 84295; 85014; 85018; 85025; 85049; 85347; 85610; 85730; 86850; 86900; 86923; 87081; 87635; 90935; 93005; 93312; 93321; 93325; 93880; 94002; G0378; J0171; J0882; J1644; J1815; J2250; J2405; J2704; J3010; J3370; J3475; J3480; P9045; P9047; C1751; C1760; J0780; J2370; J2440; J2930; J7050; P9035

== ENCOUNTER 2020-05-07 09:37 | Inpatient (IN) | payer OTHER ==
[~2020-05-07] VITALS: Ht 172.7 cm; Wt 96.9 kg
[~2020-05-07 09:37] MED LIST changes: +ASPI81TA45 PO; +ATOR20TA37 PO; +CARV3.1212 PO; +HYDR-3237 PO; +ONDA4TAB7 PO; +SEVE800T8 PO; +WARF5TAB2 PO
[2020-05-07] MEDS ORDERED: ASPIRIN 81 MG TABLET CHEW PO ONE (10:00)
[2020-05-07] MEDS ORDERED: SODIUM CHLORIDE FLUSH 10ML SYR IVF ONE ×2 (10:00)
[2020-05-07] MEDS ORDERED: ASPIRIN 81 MG TABLET CHEW ONE (10:07)
[2020-05-07 10:14] LABS: BASOPHILS # (AUTO) 0.05 x10^3/uL (0-0.1); BASOPHILS % (AUTO) 0 % (0-1); EOSINOPHILS # (AUTO) 0.17 x10^3/uL (0-0.4); EOSINOPHILS % (AUTO) 1 % (1-7); LYMPHOCYTES % (AUTO) 10 % (22-44); MD NO; MEAN CORPUSCULAR HEMOGLOBIN 32.2 pg (27.5-34.5); MEAN CORPUSCULAR HGB CONC 31.9 g/dL (33.2-36.2); MEAN PLATELET VOLUME 7.5 fL (7.4-10.4); MONOCYTES # (AUTO) 0.58 x10^3/uL (0.2-0.8); MONOCYTES % (AUTO) 5 % (2-9); NEUTROPHILS # (AUTO) 10.42 x10^3/uL (1.8-6.8); NEUTROPHILS % (AUTO) 84 % (42-75); PLATELET COUNT 332 x10^3/uL (130-400); RED BLOOD COUNT 2.82 x10^6/uL (4.38-5.82); RED CELL DISTRIBUTION WIDTH 17.3 % (9.4-14.8)
[2020-05-07 10:26] LABS: ALBUMIN 3.1 g/dL (3.4-5.0); CALCIUM 7.8 mg/dL (8.5-10.1); CHLORIDE 100 mmol/L (98-107)
[2020-05-07] MEDS ORDERED: AZITHROMYCIN 500 MG in SODIUM CHLORIDE 0.9% 250 ML IVPB ONE (10:30)
[2020-05-07] MEDS ORDERED: CEFTRIAXONE PMX 1GM/50ML 50 ML IVPB ONE ×2 (10:30→10:33)
--- NOTE | 2020-05-07 10:31 | NUR ---
RECEIVED REPORT FROM HOWARD HOOKS. PT RESTING ON ROSARIO. INCREASED WOB. ERP AWARE.
[2020-05-07 10:32] LABS: TROPONIN I 0.045 ng/mL (0.000-0.045)
[2020-05-07 10:33] LABS: INTERNATIONAL NORMALIZED RATIO 2.43 (0.93-1.1)
[2020-05-07 10:37] LABS: ANION GAP 11 mmol/L (5-15)
[2020-05-07] MEDS ORDERED: CALCIUM GLUCONATE 4.6 MEQ/10 ML ONE (10:56)
[2020-05-07] MEDS ORDERED: CEFTRIAXONE PMX 1GM/50ML 50 ML ONE (10:56)
[2020-05-07] MEDS ORDERED: SODIUM BICARBONATE 1 MEQ/ML, 50ML VIAL ONE (10:56)
[2020-05-07] MEDS ORDERED: DEXTROSE 50%, 50ML SYRINGE ONE (10:57)
[2020-05-07] MEDS ORDERED: LORazepam 2 MG/ML, 1ML ONE (10:57)
[2020-05-07] MEDS ORDERED: INSULIN SINGLE DOSE, ER ONE (10:59)
[2020-05-07] MEDS ORDERED: INSULIN REGULAR 100 UNITS/ML, 3ML VIAL IVPush ONE (11:00)
[2020-05-07] MEDS ORDERED: CALCIUM GLUCONATE 4.6 MEQ/10 ML IVPush ONE (11:00)
[2020-05-07] MEDS ORDERED: SODIUM BICARB 8.4%, 50ML SYRINGE IVPush ONE (11:00)
[2020-05-07] MEDS ORDERED: LORazepam 2 MG/ML, 1ML IVPush ONE (11:00)
[2020-05-07] MEDS ORDERED: DEXTROSE 50%, 50ML SYRINGE IVPush ONE ×2 (11:00→19:00)
[2020-05-07] MEDS ORDERED: CALCIUM GLUCONATE 4.6 MEQ in SODIUM CHLORIDE 0.9% 100 ML IV ONE (11:30)
[2020-05-07] MEDS ORDERED: SODIUM CHLORIDE FLUSH 10ML SYR IVF PRN (12:00)
--- NOTE | 2020-05-07 12:02 | NUR ---
PLATING TANK OPERATOR AT BEDSIDE. STATES ONCE HE GETS ROOM HE WILL BE DIALYZED TODAY.
--- NOTE | 2020-05-07 12:03 | NUR ---
PT HAS INSULIN PUMP IN PLACE. PER ERP DR. ERI WELCH FOR PT TO LEAVE IT ON AT THIS TIME.
--- NOTE | 2020-05-07 12:26 | NUR ---
PT RESTING ON GURNEY. ARTEAGA
--- NOTE | 2020-05-07 12:52 | NUR ---
SPOKE W/ ROULA IN DIALYSIS WHO STATES SHE WILL NOTIFY THIS RN WHEN THEY ARE READY FOR PT TO BE TRANSPORTED TO DIALYSIS ROOM.
[2020-05-07] MEDS ORDERED: ONDANSETRON 2MG/ML, 2ML IVPush PRN (13:00)
[2020-05-07] MEDS ORDERED: HYDROcodone/APAP 5/325 TABLET PO PRN (13:00)
[2020-05-07] MEDS ORDERED: MELATONIN 5 MG TABLET PO PRN (13:00)
[2020-05-07] MEDS ORDERED: ONDANSETRON ODT 4 MG PO PRN (13:00)
[2020-05-07] MEDS ORDERED: ACETAMINOPHEN 325 MG TABLET PO PRN (13:00)
[2020-05-07] MEDS ORDERED: TEMPLATE NON-FORMULARY MED. (Insulin Lispro** (Humalog**) 0 UNITS) SQ SCH (13:00)
[2020-05-07] MEDS ORDERED: BACLOFEN 10 MG TABLET PO PRN (13:00)
[2020-05-07] MEDS ORDERED: BUTALB/APAP/CAFFEINE 50MG/325MG/40MG PO PRN (13:00)
--- NOTE | 2020-05-07 13:02 | NUR ---
PT RESTING ON GURNEY. NADN. B[place]NE.
--- NOTE | 2020-05-07 13:36 | NUR ---
PT RESTING CALMLY IN BED WITH EYES CLOSED. NO STATED NEEDS.
--- NOTE | 2020-05-07 13:57 | NUR ---
REPORT GIVEN TO ROULA IN DIALYSIS. ALL QUESTIONS ANSWERED. PT TO BE TRANSPORTED BY ER STAFF. MURTAZA DAVIS ROBOTICS TECHNOLOGIST MADE AWARE THAT PT WILL BE IN DIALYSIS AND CURRENTLY DOES NOT HAVE ROOM ASSIGNMENT. PER SUSAN PT SHOULD HAVE ROOM WHEN COMPELTED W/ DIALYSIS.
[2020-05-07 19:24] VITALS: BP 127/70
[2020-05-07] MEDS: SEVELAMER CARBONATE 800MG TAB PO SCH (19:51)
[2020-05-07] MEDS ORDERED: CARVEDILOL 3.125 MG TABLET PO SCH (21:00)
[2020-05-07] MEDS ORDERED: ATORVASTATIN 20 MG TABLET PO SCH (21:00)
[2020-05-07] MEDS ORDERED: LIDOCAINE 1%, 10ML ONE (22:41)
[2020-05-08] MEDS: CEFTRIAXONE PMX 1GM/50ML 50 ML IV SCH ×2 (00:36→11:29)
[2020-05-08 02:45] VITALS: BP 127/58
[2020-05-08 05:38] LABS: BASOPHILS % (AUTO) 0 % (0-1); EOSINOPHILS # (AUTO) 0.19 x10^3/uL (0-0.4); EOSINOPHILS % (AUTO) 1 % (1-7); LYMPHOCYTES # (AUTO) 0.89 x10^3/uL (1-3.4); LYMPHOCYTES % (AUTO) 7 % (22-44); MD NO; MEAN CORPUSCULAR HEMOGLOBIN 32.6 pg (27.5-34.5); MEAN CORPUSCULAR HGB CONC 32.6 g/dL (33.2-36.2); MEAN CORPUSCULAR VOLUME 100.2 fL (81-97); MEAN PLATELET VOLUME 7.4 fL (7.4-10.4); MONOCYTES % (AUTO) 5 % (2-9); NEUTROPHILS # (AUTO) 11.66 x10^3/uL (1.8-6.8); NEUTROPHILS % (AUTO) 87 % (42-75); PLATELET COUNT 308 x10^3/uL (130-400); RED BLOOD COUNT 2.66 x10^6/uL (4.38-5.82); RED CELL DISTRIBUTION WIDTH 17.2 % (9.4-14.8)
[2020-05-08 05:46] LABS: CHLORIDE 100 mmol/L (98-107)
[2020-05-08 05:52] LABS: ALANINE AMINOTRANSFERASE 21 U/L (12-78); ALBUMIN 2.6 g/dL (3.4-5.0); ALKALINE PHOSPHATASE 99 U/L (45-117); ANION GAP 7 mmol/L (5-15); BILIRUBIN,TOTAL 0.7 mg/dL (0.2-1.0); CALCIUM 7.7 mg/dL (8.5-10.1); CREATININE 7.86 mg/dL (0.7-1.3); TOTAL PROTEIN 6.3 g/dL (6.4-8.2)
[2020-05-08 07:28] VITALS: BP 145/82
[2020-05-08] MEDS ORDERED: CARV6.25 PO (08:25)
[2020-05-08] MEDS ORDERED: WARF5TAB2 PO (08:30)
[2020-05-08] MEDS ORDERED: SEVE800T8 PO (08:35)
[2020-05-08] MEDS ORDERED: LOSARTAN 50MG TABLET PO SCH (09:00)
[2020-05-08] MEDS ORDERED: SEVELAMER CARBONATE 800MG TAB PO PRN (09:00)
[2020-05-08] MEDS ORDERED: WARFARIN 5 MG TABLET PO-COUM SCH ×2 (09:00→21:00)
[2020-05-08] MEDS ORDERED: CARVEDILOL 6.25 MG TABLET PO SCH ×2 (09:00→09:29)
[2020-05-08] MEDS ORDERED: SENNA/DOCUSATE TABLET PO SCH (09:00)
[2020-05-08] MEDS: SEVELAMER CARBONATE 800MG TAB PO SCH ×2 (09:58→11:29)
[2020-05-08 10:03] VITALS: BP 129/59
[2020-05-08 11:39] LABS: INTERNATIONAL NORMALIZED RATIO 1.87 (0.93-1.1)
[2020-05-08] MEDS ORDERED: SODIUM ZIRCONIUM CYCLOSILICATE 5 GM PO ONE (12:00)
[2020-05-08 12:38] VITALS: BP 142/57
[2020-05-08] MEDS ORDERED: ARANESP 100 MCG/ML **ESRD SQ SCH (14:00)
[2020-05-08] MEDS ORDERED: AZITHROMYCIN 250 MG TABLET PO SCH (20:00)
[2020-05-09] MEDS ORDERED: WARFARIN 5 MG TABLET PO-COUM SCH (18:00)
== END 2020-05-08 14:50 | disposition home health service (06) | DRG 189 ==
LOC: ED 11:42 → EDIP 11:51 → 4WST 14:53 → 4EST 22:05 → DCLOUNGE 05-08 14:41
PROVIDERS: ADMIT Hospitalist; ATTEND Family Medicine
PROC: 5A1D70Z Performance of Urinary Filtration, Intermittent, Less than 6 Hours Per Day (ICD-10-PCS; principal; 2020-05-07)
PROC: 0W9B3ZZ Drainage of Left Pleural Cavity, Percutaneous Approach (ICD-10-PCS; 2020-05-07)
DX: J96.01 Acute respiratory failure with hypoxia (principal); N18.6 End stage renal disease; I13.2 Hypertensive heart and chronic kidney disease with heart failure and with stage 5 chronic kidney disease, or end stage renal disease; D68.69 Other thrombophilia; E46 Unspecified protein-calorie malnutrition; I50.32 Chronic diastolic (congestive) heart failure; E87.5 Hyperkalemia; D63.1 Anemia in chronic kidney disease; D75.89 Other specified diseases of blood and blood-forming organs; E10.22 Type 1 diabetes mellitus with diabetic chronic kidney disease; E10.319 Type 1 diabetes mellitus with unspecified diabetic retinopathy without macular edema; E10.42 Type 1 diabetes mellitus with diabetic polyneuropathy; E10.610 Type 1 diabetes mellitus with diabetic neuropathic arthropathy; E10.65 Type 1 diabetes mellitus with hyperglycemia; E78.5 Hyperlipidemia, unspecified; E87.6 Hypokalemia; F41.9 Anxiety disorder, unspecified; G25.81 Restless legs syndrome; I25.10 Atherosclerotic heart disease of native coronary artery without angina pectoris; I25.5 Ischemic cardiomyopathy; I34.1 Nonrheumatic mitral (valve) prolapse; W07.XXXA Fall from chair, initial encounter; G47.00 Insomnia, unspecified; Z20.828 Contact with and (suspected) exposure to other viral communicable diseases; Z79.4 Long term (current) use of insulin; Z95.1 Presence of aortocoronary bypass graft; Z95.2 Presence of prosthetic heart valve; Z99.2 Dependence on renal dialysis; Y93.89 Activity, other specified; Y92.89 Other specified places as the place of occurrence of the external cause; Y99.8 Other external cause status; Z90.49 Acquired absence of other specified parts of digestive tract; Z88.1 Allergy status to other antibiotic agents; Z98.49 Cataract extraction status, unspecified eye; Z89.421 Acquired absence of other right toe(s); Z68.32 Body mass index [BMI] 32.0-32.9, adult
CPT/HCPCS: 32555; 36415; 82042; 84145; 89051; 96374; 96375; 99291; J3490; 71045; 71250; 80048; 80053; 82040; 82947; 82962; 83605; 83615; 83735; 83880; 84132; 84157; 84484; 85025; 85610; 85730; 87040; 87070; 87075; 87205; 87635; 90935; 93005; G0378; J0456; J0696; J1815; J2060; J7050

== ENCOUNTER → 2020-07-11 | Outpatient (CLI) | payer OTHER ==
[~2020-07-11] MED LIST changes: +CARV6.25 PO
== END | disposition home or self-care (01) ==
LOC: WOUND 09:44
PROVIDERS: ATTEND Podiatrist Foot & Ankle Surgery
DX: E11.621 Type 2 diabetes mellitus with foot ulcer (principal); L97.511 Non-pressure chronic ulcer of other part of right foot limited to breakdown of skin; L84 Corns and callosities; E11.22 Type 2 diabetes mellitus with diabetic chronic kidney disease; I13.11 Hypertensive heart and chronic kidney disease without heart failure, with stage 5 chronic kidney disease, or end stage renal disease; I50.42 Chronic combined systolic (congestive) and diastolic (congestive) heart failure; N18.6 End stage renal disease; D63.8 Anemia in other chronic diseases classified elsewhere; E11.36 Type 2 diabetes mellitus with diabetic cataract; E11.21 Type 2 diabetes mellitus with diabetic nephropathy; E11.610 Type 2 diabetes mellitus with diabetic neuropathic arthropathy; I08.1 Rheumatic disorders of both mitral and tricuspid valves; I25.10 Atherosclerotic heart disease of native coronary artery without angina pectoris; E78.5 Hyperlipidemia, unspecified; F41.9 Anxiety disorder, unspecified; G47.00 Insomnia, unspecified; E46 Unspecified protein-calorie malnutrition; E11.42 Type 2 diabetes mellitus with diabetic polyneuropathy; Z99.2 Dependence on renal dialysis; Z79.4 Long term (current) use of insulin; Z90.49 Acquired absence of other specified parts of digestive tract; Z79.899 Other long term (current) drug therapy; Z89.411 Acquired absence of right great toe; Z95.2 Presence of prosthetic heart valve; Z88.1 Allergy status to other antibiotic agents; Z89.421 Acquired absence of other right toe(s); Z95.1 Presence of aortocoronary bypass graft; Z68.30 Body mass index [BMI] 30.0-30.9, adult
CPT/HCPCS: 99214

== ENCOUNTER → 2020-07-18 | Outpatient (CLI) | payer OTHER | END | disposition home or self-care (01) | LOC: WOUND 12:54 | PROVIDERS: ATTEND Podiatrist Foot & Ankle Surgery | DX: E11.621 Type 2 diabetes mellitus with foot ulcer (principal); L97.512 Non-pressure chronic ulcer of other part of right foot with fat layer exposed; E11.42 Type 2 diabetes mellitus with diabetic polyneuropathy; L84 Corns and callosities; E78.5 Hyperlipidemia, unspecified; E11.610 Type 2 diabetes mellitus with diabetic neuropathic arthropathy; E11.22 Type 2 diabetes mellitus with diabetic chronic kidney disease; I13.2 Hypertensive heart and chronic kidney disease with heart failure and with stage 5 chronic kidney disease, or end stage renal disease; I50.42 Chronic combined systolic (congestive) and diastolic (congestive) heart failure; N18.6 End stage renal disease; D63.1 Anemia in chronic kidney disease; E11.36 Type 2 diabetes mellitus with diabetic cataract; I25.10 Atherosclerotic heart disease of native coronary artery without angina pectoris; G47.00 Insomnia, unspecified; F41.9 Anxiety disorder, unspecified; Z79.4 Long term (current) use of insulin; Z99.2 Dependence on renal dialysis; Z89.411 Acquired absence of right great toe; Z90.49 Acquired absence of other specified parts of digestive tract; Z89.421 Acquired absence of other right toe(s); Z95.1 Presence of aortocoronary bypass graft; Z95.2 Presence of prosthetic heart valve | CPT/HCPCS: 11042 ==

== ENCOUNTER → 2020-08-01 | Outpatient (CLI) | payer OTHER | END | disposition home or self-care (01) | LOC: WOUND 15:16 | PROVIDERS: ATTEND Podiatrist Foot & Ankle Surgery | DX: E11.621 Type 2 diabetes mellitus with foot ulcer (principal); L97.512 Non-pressure chronic ulcer of other part of right foot with fat layer exposed; E11.42 Type 2 diabetes mellitus with diabetic polyneuropathy; L84 Corns and callosities; E78.5 Hyperlipidemia, unspecified; E11.610 Type 2 diabetes mellitus with diabetic neuropathic arthropathy; E11.22 Type 2 diabetes mellitus with diabetic chronic kidney disease; I13.2 Hypertensive heart and chronic kidney disease with heart failure and with stage 5 chronic kidney disease, or end stage renal disease; I50.42 Chronic combined systolic (congestive) and diastolic (congestive) heart failure; N18.6 End stage renal disease; D63.1 Anemia in chronic kidney disease; E11.36 Type 2 diabetes mellitus with diabetic cataract; I25.10 Atherosclerotic heart disease of native coronary artery without angina pectoris; G47.00 Insomnia, unspecified; F41.9 Anxiety disorder, unspecified; E46 Unspecified protein-calorie malnutrition; Z99.2 Dependence on renal dialysis; Z89.411 Acquired absence of right great toe; Z90.49 Acquired absence of other specified parts of digestive tract; Z89.421 Acquired absence of other right toe(s); Z95.1 Presence of aortocoronary bypass graft; Z95.2 Presence of prosthetic heart valve; Z79.4 Long term (current) use of insulin; Z79.899 Other long term (current) drug therapy; Z88.1 Allergy status to other antibiotic agents; Z68.30 Body mass index [BMI] 30.0-30.9, adult | CPT/HCPCS: 11042 ==

== ENCOUNTER 2020-08-15 13:59 | Outpatient (CLI) | payer OTHER | END 2020-08-15 23:59 | disposition home or self-care (01) | LOC: WOUND 13:59 | PROVIDERS: ATTEND Podiatrist Foot & Ankle Surgery | DX: E11.621 Type 2 diabetes mellitus with foot ulcer (principal); L97.512 Non-pressure chronic ulcer of other part of right foot with fat layer exposed; E11.42 Type 2 diabetes mellitus with diabetic polyneuropathy; L84 Corns and callosities; E11.610 Type 2 diabetes mellitus with diabetic neuropathic arthropathy; E11.22 Type 2 diabetes mellitus with diabetic chronic kidney disease; I50.42 Chronic combined systolic (congestive) and diastolic (congestive) heart failure; N18.6 End stage renal disease; D63.1 Anemia in chronic kidney disease; E78.5 Hyperlipidemia, unspecified; E11.36 Type 2 diabetes mellitus with diabetic cataract; I25.10 Atherosclerotic heart disease of native coronary artery without angina pectoris; G47.00 Insomnia, unspecified; F41.9 Anxiety disorder, unspecified; E46 Unspecified protein-calorie malnutrition; Z68.30 Body mass index [BMI] 30.0-30.9, adult; Z99.2 Dependence on renal dialysis; Z95.1 Presence of aortocoronary bypass graft; Z95.4 Presence of other heart-valve replacement; Z79.4 Long term (current) use of insulin; Z90.49 Acquired absence of other specified parts of digestive tract; Z89.411 Acquired absence of right great toe; Z88.1 Allergy status to other antibiotic agents; Z89.421 Acquired absence of other right toe(s); Z79.899 Other long term (current) drug therapy; Z95.2 Presence of prosthetic heart valve | CPT/HCPCS: 11042 ==

== ENCOUNTER → 2020-08-22 | Outpatient (CLI) | payer OTHER | END | disposition home or self-care (01) | LOC: WOUND 14:05 | PROVIDERS: ATTEND Podiatrist Foot & Ankle Surgery | DX: E11.621 Type 2 diabetes mellitus with foot ulcer (principal); L97.512 Non-pressure chronic ulcer of other part of right foot with fat layer exposed; E11.42 Type 2 diabetes mellitus with diabetic polyneuropathy; L84 Corns and callosities; E11.610 Type 2 diabetes mellitus with diabetic neuropathic arthropathy; E11.22 Type 2 diabetes mellitus with diabetic chronic kidney disease; I50.42 Chronic combined systolic (congestive) and diastolic (congestive) heart failure; N18.6 End stage renal disease; D63.1 Anemia in chronic kidney disease; E78.5 Hyperlipidemia, unspecified; E11.36 Type 2 diabetes mellitus with diabetic cataract; I25.10 Atherosclerotic heart disease of native coronary artery without angina pectoris; G47.00 Insomnia, unspecified; F41.9 Anxiety disorder, unspecified; Z99.2 Dependence on renal dialysis; Z95.1 Presence of aortocoronary bypass graft; Z95.4 Presence of other heart-valve replacement; Z79.4 Long term (current) use of insulin; Z90.49 Acquired absence of other specified parts of digestive tract; Z89.411 Acquired absence of right great toe | CPT/HCPCS: 11042 ==

== ENCOUNTER → 2020-09-05 | Outpatient (CLI) | payer OTHER | END | disposition home or self-care (01) | LOC: WOUND 10:25 | PROVIDERS: ATTEND Podiatrist Foot & Ankle Surgery | DX: E11.621 Type 2 diabetes mellitus with foot ulcer (principal); L97.512 Non-pressure chronic ulcer of other part of right foot with fat layer exposed; E11.42 Type 2 diabetes mellitus with diabetic polyneuropathy; L84 Corns and callosities; E11.610 Type 2 diabetes mellitus with diabetic neuropathic arthropathy; E11.22 Type 2 diabetes mellitus with diabetic chronic kidney disease; I50.42 Chronic combined systolic (congestive) and diastolic (congestive) heart failure; N18.6 End stage renal disease; D63.1 Anemia in chronic kidney disease; E78.5 Hyperlipidemia, unspecified; E11.36 Type 2 diabetes mellitus with diabetic cataract; I25.10 Atherosclerotic heart disease of native coronary artery without angina pectoris; G47.00 Insomnia, unspecified; F41.9 Anxiety disorder, unspecified; E46 Unspecified protein-calorie malnutrition; Z68.30 Body mass index [BMI] 30.0-30.9, adult; Z99.2 Dependence on renal dialysis; Z95.1 Presence of aortocoronary bypass graft; Z95.4 Presence of other heart-valve replacement; Z79.4 Long term (current) use of insulin; Z90.49 Acquired absence of other specified parts of digestive tract; Z89.411 Acquired absence of right great toe; Z88.1 Allergy status to other antibiotic agents; Z89.421 Acquired absence of other right toe(s); Z79.899 Other long term (current) drug therapy; Z95.2 Presence of prosthetic heart valve | CPT/HCPCS: 11042 ==

== ENCOUNTER → 2020-09-19 | Outpatient (CLI) | payer OTHER | END | disposition home or self-care (01) | LOC: WOUND 14:13 | PROVIDERS: ATTEND Podiatrist Foot & Ankle Surgery | DX: E11.621 Type 2 diabetes mellitus with foot ulcer (principal); L97.512 Non-pressure chronic ulcer of other part of right foot with fat layer exposed; E11.42 Type 2 diabetes mellitus with diabetic polyneuropathy; L84 Corns and callosities; E11.610 Type 2 diabetes mellitus with diabetic neuropathic arthropathy; E11.22 Type 2 diabetes mellitus with diabetic chronic kidney disease; I50.42 Chronic combined systolic (congestive) and diastolic (congestive) heart failure; N18.6 End stage renal disease; D63.1 Anemia in chronic kidney disease; E78.5 Hyperlipidemia, unspecified; E11.36 Type 2 diabetes mellitus with diabetic cataract; I25.10 Atherosclerotic heart disease of native coronary artery without angina pectoris; G47.00 Insomnia, unspecified; F41.9 Anxiety disorder, unspecified; E46 Unspecified protein-calorie malnutrition; Z68.30 Body mass index [BMI] 30.0-30.9, adult; Z99.2 Dependence on renal dialysis; Z95.1 Presence of aortocoronary bypass graft; Z95.4 Presence of other heart-valve replacement; Z79.4 Long term (current) use of insulin; Z90.49 Acquired absence of other specified parts of digestive tract; Z89.411 Acquired absence of right great toe; Z88.1 Allergy status to other antibiotic agents; Z89.421 Acquired absence of other right toe(s); Z79.899 Other long term (current) drug therapy; Z95.2 Presence of prosthetic heart valve | CPT/HCPCS: 11042 ==

== ENCOUNTER → 2020-10-24 | Outpatient (CLI) | payer OTHER | END | disposition home or self-care (01) | LOC: WOUND 10:08 | PROVIDERS: ATTEND Podiatrist Foot & Ankle Surgery | DX: E11.621 Type 2 diabetes mellitus with foot ulcer (principal); L97.512 Non-pressure chronic ulcer of other part of right foot with fat layer exposed; E11.42 Type 2 diabetes mellitus with diabetic polyneuropathy; L84 Corns and callosities; E11.610 Type 2 diabetes mellitus with diabetic neuropathic arthropathy; E11.22 Type 2 diabetes mellitus with diabetic chronic kidney disease; I50.42 Chronic combined systolic (congestive) and diastolic (congestive) heart failure; N18.6 End stage renal disease; D63.1 Anemia in chronic kidney disease; E78.5 Hyperlipidemia, unspecified; E11.36 Type 2 diabetes mellitus with diabetic cataract; I25.10 Atherosclerotic heart disease of native coronary artery without angina pectoris; G47.00 Insomnia, unspecified; F41.9 Anxiety disorder, unspecified; E46 Unspecified protein-calorie malnutrition; Z68.30 Body mass index [BMI] 30.0-30.9, adult; Z99.2 Dependence on renal dialysis; Z95.1 Presence of aortocoronary bypass graft; Z95.4 Presence of other heart-valve replacement; Z79.4 Long term (current) use of insulin; Z90.49 Acquired absence of other specified parts of digestive tract; Z89.411 Acquired absence of right great toe; Z88.1 Allergy status to other antibiotic agents; Z89.421 Acquired absence of other right toe(s); Z79.899 Other long term (current) drug therapy; Z95.2 Presence of prosthetic heart valve | CPT/HCPCS: 11042 ==

== ENCOUNTER → 2020-11-07 | Outpatient (CLI) | payer OTHER | END | disposition home or self-care (01) | LOC: WOUND 10:18 | PROVIDERS: ATTEND Podiatrist Foot & Ankle Surgery | DX: E11.621 Type 2 diabetes mellitus with foot ulcer (principal); L97.512 Non-pressure chronic ulcer of other part of right foot with fat layer exposed; E11.42 Type 2 diabetes mellitus with diabetic polyneuropathy; L84 Corns and callosities; E11.610 Type 2 diabetes mellitus with diabetic neuropathic arthropathy; E11.22 Type 2 diabetes mellitus with diabetic chronic kidney disease; I50.42 Chronic combined systolic (congestive) and diastolic (congestive) heart failure; N18.6 End stage renal disease; D63.1 Anemia in chronic kidney disease; E78.5 Hyperlipidemia, unspecified; E11.36 Type 2 diabetes mellitus with diabetic cataract; I25.10 Atherosclerotic heart disease of native coronary artery without angina pectoris; G47.00 Insomnia, unspecified; F41.9 Anxiety disorder, unspecified; E46 Unspecified protein-calorie malnutrition; Z68.30 Body mass index [BMI] 30.0-30.9, adult; Z99.2 Dependence on renal dialysis; Z95.1 Presence of aortocoronary bypass graft; Z95.4 Presence of other heart-valve replacement; Z79.4 Long term (current) use of insulin; Z90.49 Acquired absence of other specified parts of digestive tract; Z89.411 Acquired absence of right great toe; Z88.1 Allergy status to other antibiotic agents; Z89.421 Acquired absence of other right toe(s); Z79.899 Other long term (current) drug therapy; Z95.2 Presence of prosthetic heart valve | CPT/HCPCS: 11042 ==

== ENCOUNTER → 2020-11-14 | Outpatient (CLI) | payer OTHER | END | disposition home or self-care (01) | LOC: WOUND 11:00 | PROVIDERS: ATTEND Podiatrist Foot & Ankle Surgery | DX: E11.621 Type 2 diabetes mellitus with foot ulcer (principal); L97.512 Non-pressure chronic ulcer of other part of right foot with fat layer exposed; E11.42 Type 2 diabetes mellitus with diabetic polyneuropathy; E11.610 Type 2 diabetes mellitus with diabetic neuropathic arthropathy; L84 Corns and callosities; E78.5 Hyperlipidemia, unspecified; I25.10 Atherosclerotic heart disease of native coronary artery without angina pectoris; E11.22 Type 2 diabetes mellitus with diabetic chronic kidney disease; I13.2 Hypertensive heart and chronic kidney disease with heart failure and with stage 5 chronic kidney disease, or end stage renal disease; I50.42 Chronic combined systolic (congestive) and diastolic (congestive) heart failure; N18.6 End stage renal disease; D63.1 Anemia in chronic kidney disease; G47.00 Insomnia, unspecified; Z95.1 Presence of aortocoronary bypass graft; Z95.2 Presence of prosthetic heart valve; Z99.2 Dependence on renal dialysis; F41.9 Anxiety disorder, unspecified; Z98.41 Cataract extraction status, right eye; Z98.42 Cataract extraction status, left eye; Z90.49 Acquired absence of other specified parts of digestive tract; Z89.411 Acquired absence of right great toe | CPT/HCPCS: 11042 ==

== ENCOUNTER → 2020-11-21 | Outpatient (CLI) | payer OTHER | END | disposition home or self-care (01) | LOC: WOUND 11:11 | PROVIDERS: ATTEND Podiatrist Foot & Ankle Surgery | DX: E11.621 Type 2 diabetes mellitus with foot ulcer (principal); L97.512 Non-pressure chronic ulcer of other part of right foot with fat layer exposed; E11.610 Type 2 diabetes mellitus with diabetic neuropathic arthropathy; E78.5 Hyperlipidemia, unspecified; E11.22 Type 2 diabetes mellitus with diabetic chronic kidney disease; I12.0 Hypertensive chronic kidney disease with stage 5 chronic kidney disease or end stage renal disease; N18.6 End stage renal disease; D63.1 Anemia in chronic kidney disease; I25.10 Atherosclerotic heart disease of native coronary artery without angina pectoris; L84 Corns and callosities; E11.36 Type 2 diabetes mellitus with diabetic cataract; G47.00 Insomnia, unspecified; F41.9 Anxiety disorder, unspecified; Z95.1 Presence of aortocoronary bypass graft; Z95.2 Presence of prosthetic heart valve; Z99.2 Dependence on renal dialysis; Z98.41 Cataract extraction status, right eye; Z98.42 Cataract extraction status, left eye; Z89.411 Acquired absence of right great toe; Z89.421 Acquired absence of other right toe(s); Z90.49 Acquired absence of other specified parts of digestive tract | CPT/HCPCS: 11042 ==

== ENCOUNTER → 2020-11-28 | Outpatient (CLI) | payer OTHER | END | disposition home or self-care (01) | LOC: WOUND 14:39 | PROVIDERS: ATTEND Podiatrist Foot & Ankle Surgery | DX: E11.621 Type 2 diabetes mellitus with foot ulcer (principal); L97.512 Non-pressure chronic ulcer of other part of right foot with fat layer exposed; E11.42 Type 2 diabetes mellitus with diabetic polyneuropathy; L84 Corns and callosities; E11.610 Type 2 diabetes mellitus with diabetic neuropathic arthropathy; E78.5 Hyperlipidemia, unspecified; E11.22 Type 2 diabetes mellitus with diabetic chronic kidney disease; I13.2 Hypertensive heart and chronic kidney disease with heart failure and with stage 5 chronic kidney disease, or end stage renal disease; I50.42 Chronic combined systolic (congestive) and diastolic (congestive) heart failure; N18.6 End stage renal disease; D63.1 Anemia in chronic kidney disease; G47.00 Insomnia, unspecified; F41.9 Anxiety disorder, unspecified; Z79.4 Long term (current) use of insulin; Z95.1 Presence of aortocoronary bypass graft; Z99.2 Dependence on renal dialysis; Z79.899 Other long term (current) drug therapy; Z95.2 Presence of prosthetic heart valve; Z89.411 Acquired absence of right great toe; Z98.41 Cataract extraction status, right eye; Z98.42 Cataract extraction status, left eye; Z90.49 Acquired absence of other specified parts of digestive tract | CPT/HCPCS: 11042 ==

== ENCOUNTER → 2020-12-05 | Outpatient (CLI) | payer OTHER | END | disposition home or self-care (01) | LOC: WOUND 12:41 | PROVIDERS: ATTEND Podiatrist Foot & Ankle Surgery | DX: E11.621 Type 2 diabetes mellitus with foot ulcer (principal); L97.512 Non-pressure chronic ulcer of other part of right foot with fat layer exposed; E11.42 Type 2 diabetes mellitus with diabetic polyneuropathy; L84 Corns and callosities; E11.610 Type 2 diabetes mellitus with diabetic neuropathic arthropathy; E78.5 Hyperlipidemia, unspecified; E11.22 Type 2 diabetes mellitus with diabetic chronic kidney disease; I13.2 Hypertensive heart and chronic kidney disease with heart failure and with stage 5 chronic kidney disease, or end stage renal disease; I50.42 Chronic combined systolic (congestive) and diastolic (congestive) heart failure; N18.6 End stage renal disease; D63.1 Anemia in chronic kidney disease; G47.00 Insomnia, unspecified; F41.9 Anxiety disorder, unspecified; I25.10 Atherosclerotic heart disease of native coronary artery without angina pectoris; E46 Unspecified protein-calorie malnutrition; Z95.1 Presence of aortocoronary bypass graft; Z99.2 Dependence on renal dialysis; Z79.4 Long term (current) use of insulin; Z79.899 Other long term (current) drug therapy; Z95.2 Presence of prosthetic heart valve; Z89.411 Acquired absence of right great toe; Z89.421 Acquired absence of other right toe(s); Z98.41 Cataract extraction status, right eye; Z98.42 Cataract extraction status, left eye; Z90.49 Acquired absence of other specified parts of digestive tract; Z88.1 Allergy status to other antibiotic agents | CPT/HCPCS: 11042 ==

== ENCOUNTER 2020-12-12 11:16 | Outpatient (CLI) | payer OTHER | END 2020-12-12 23:59 | disposition home or self-care (01) | LOC: WOUND 11:16 | PROVIDERS: ATTEND Podiatrist Foot & Ankle Surgery | DX: E11.621 Type 2 diabetes mellitus with foot ulcer (principal); L97.512 Non-pressure chronic ulcer of other part of right foot with fat layer exposed; E11.42 Type 2 diabetes mellitus with diabetic polyneuropathy; L84 Corns and callosities; E11.610 Type 2 diabetes mellitus with diabetic neuropathic arthropathy; E78.5 Hyperlipidemia, unspecified; E11.22 Type 2 diabetes mellitus with diabetic chronic kidney disease; I13.2 Hypertensive heart and chronic kidney disease with heart failure and with stage 5 chronic kidney disease, or end stage renal disease; I50.42 Chronic combined systolic (congestive) and diastolic (congestive) heart failure; N18.6 End stage renal disease; D63.1 Anemia in chronic kidney disease; G47.00 Insomnia, unspecified; F41.9 Anxiety disorder, unspecified; I25.10 Atherosclerotic heart disease of native coronary artery without angina pectoris; E43 Unspecified severe protein-calorie malnutrition; Z95.1 Presence of aortocoronary bypass graft; Z99.2 Dependence on renal dialysis; Z79.4 Long term (current) use of insulin; Z79.899 Other long term (current) drug therapy; Z95.2 Presence of prosthetic heart valve; Z89.411 Acquired absence of right great toe; Z89.421 Acquired absence of other right toe(s); Z98.41 Cataract extraction status, right eye; Z98.42 Cataract extraction status, left eye; Z90.49 Acquired absence of other specified parts of digestive tract; Z88.1 Allergy status to other antibiotic agents; Z68.30 Body mass index [BMI] 30.0-30.9, adult | CPT/HCPCS: 11042 ==

== ENCOUNTER → 2020-12-26 | Outpatient (CLI) | payer OTHER | END | disposition home or self-care (01) | LOC: WOUND 14:12 | PROVIDERS: ATTEND Podiatrist Foot & Ankle Surgery | DX: E11.621 Type 2 diabetes mellitus with foot ulcer (principal); L97.512 Non-pressure chronic ulcer of other part of right foot with fat layer exposed; E11.42 Type 2 diabetes mellitus with diabetic polyneuropathy; L84 Corns and callosities; E11.610 Type 2 diabetes mellitus with diabetic neuropathic arthropathy; E78.5 Hyperlipidemia, unspecified; E11.22 Type 2 diabetes mellitus with diabetic chronic kidney disease; I13.2 Hypertensive heart and chronic kidney disease with heart failure and with stage 5 chronic kidney disease, or end stage renal disease; I50.42 Chronic combined systolic (congestive) and diastolic (congestive) heart failure; N18.6 End stage renal disease; D63.1 Anemia in chronic kidney disease; G47.00 Insomnia, unspecified; F41.9 Anxiety disorder, unspecified; I25.10 Atherosclerotic heart disease of native coronary artery without angina pectoris; E43 Unspecified severe protein-calorie malnutrition; Z95.1 Presence of aortocoronary bypass graft; Z99.2 Dependence on renal dialysis; Z79.4 Long term (current) use of insulin; Z79.899 Other long term (current) drug therapy; Z95.2 Presence of prosthetic heart valve; Z89.411 Acquired absence of right great toe; Z89.421 Acquired absence of other right toe(s); Z98.41 Cataract extraction status, right eye; Z98.42 Cataract extraction status, left eye; Z90.49 Acquired absence of other specified parts of digestive tract; Z88.1 Allergy status to other antibiotic agents; Z68.30 Body mass index [BMI] 30.0-30.9, adult | CPT/HCPCS: 11042 ==

== ENCOUNTER 2021-01-09 14:21 | Outpatient (CLI) | payer OTHER | END 2021-01-09 23:59 | disposition home or self-care (01) | LOC: WOUND 14:21 | PROVIDERS: ATTEND Podiatrist Foot & Ankle Surgery | DX: E11.621 Type 2 diabetes mellitus with foot ulcer (principal); L97.512 Non-pressure chronic ulcer of other part of right foot with fat layer exposed; E11.42 Type 2 diabetes mellitus with diabetic polyneuropathy; L84 Corns and callosities; E11.610 Type 2 diabetes mellitus with diabetic neuropathic arthropathy; I25.10 Atherosclerotic heart disease of native coronary artery without angina pectoris; E11.22 Type 2 diabetes mellitus with diabetic chronic kidney disease; I13.2 Hypertensive heart and chronic kidney disease with heart failure and with stage 5 chronic kidney disease, or end stage renal disease; I50.42 Chronic combined systolic (congestive) and diastolic (congestive) heart failure; N18.6 End stage renal disease; D63.1 Anemia in chronic kidney disease; E78.5 Hyperlipidemia, unspecified; G47.00 Insomnia, unspecified; F41.9 Anxiety disorder, unspecified; Z68.30 Body mass index [BMI] 30.0-30.9, adult; Z79.4 Long term (current) use of insulin; Z99.2 Dependence on renal dialysis; Z89.411 Acquired absence of right great toe; Z90.49 Acquired absence of other specified parts of digestive tract; Z98.42 Cataract extraction status, left eye; Z98.41 Cataract extraction status, right eye; Z95.1 Presence of aortocoronary bypass graft; Z95.2 Presence of prosthetic heart valve; Z89.421 Acquired absence of other right toe(s) | CPT/HCPCS: 11042 ==

== ENCOUNTER → 2021-01-16 | Outpatient (CLI) | payer OTHER | END | disposition home or self-care (01) | LOC: WOUND 14:43 | PROVIDERS: ATTEND Podiatrist Foot & Ankle Surgery | DX: E11.621 Type 2 diabetes mellitus with foot ulcer (principal); L97.512 Non-pressure chronic ulcer of other part of right foot with fat layer exposed; E11.42 Type 2 diabetes mellitus with diabetic polyneuropathy; L84 Corns and callosities; E11.610 Type 2 diabetes mellitus with diabetic neuropathic arthropathy; I25.10 Atherosclerotic heart disease of native coronary artery without angina pectoris; E11.22 Type 2 diabetes mellitus with diabetic chronic kidney disease; I13.2 Hypertensive heart and chronic kidney disease with heart failure and with stage 5 chronic kidney disease, or end stage renal disease; I50.42 Chronic combined systolic (congestive) and diastolic (congestive) heart failure; N18.6 End stage renal disease; D63.1 Anemia in chronic kidney disease; E78.5 Hyperlipidemia, unspecified; G47.00 Insomnia, unspecified; F41.9 Anxiety disorder, unspecified; E43 Unspecified severe protein-calorie malnutrition; Z68.30 Body mass index [BMI] 30.0-30.9, adult; Z79.4 Long term (current) use of insulin; Z99.2 Dependence on renal dialysis; Z89.411 Acquired absence of right great toe; Z89.421 Acquired absence of other right toe(s); Z90.49 Acquired absence of other specified parts of digestive tract; Z98.42 Cataract extraction status, left eye; Z98.41 Cataract extraction status, right eye; Z95.1 Presence of aortocoronary bypass graft; Z95.2 Presence of prosthetic heart valve; Z79.899 Other long term (current) drug therapy; Z88.1 Allergy status to other antibiotic agents | CPT/HCPCS: 11042 ==

== ENCOUNTER → 2021-01-23 | Outpatient (CLI) | payer OTHER | END | disposition home or self-care (01) | LOC: WOUND 14:00 | PROVIDERS: ATTEND Podiatrist Foot & Ankle Surgery | DX: E11.621 Type 2 diabetes mellitus with foot ulcer (principal); L97.512 Non-pressure chronic ulcer of other part of right foot with fat layer exposed; E11.42 Type 2 diabetes mellitus with diabetic polyneuropathy; L84 Corns and callosities; E11.610 Type 2 diabetes mellitus with diabetic neuropathic arthropathy; I25.10 Atherosclerotic heart disease of native coronary artery without angina pectoris; E11.22 Type 2 diabetes mellitus with diabetic chronic kidney disease; I13.2 Hypertensive heart and chronic kidney disease with heart failure and with stage 5 chronic kidney disease, or end stage renal disease; I50.42 Chronic combined systolic (congestive) and diastolic (congestive) heart failure; N18.6 End stage renal disease; D63.1 Anemia in chronic kidney disease; E78.5 Hyperlipidemia, unspecified; G47.00 Insomnia, unspecified; F41.9 Anxiety disorder, unspecified; E43 Unspecified severe protein-calorie malnutrition; Z68.30 Body mass index [BMI] 30.0-30.9, adult; Z79.4 Long term (current) use of insulin; Z99.2 Dependence on renal dialysis; Z89.411 Acquired absence of right great toe; Z89.421 Acquired absence of other right toe(s); Z90.49 Acquired absence of other specified parts of digestive tract; Z98.41 Cataract extraction status, right eye; Z95.1 Presence of aortocoronary bypass graft; Z95.2 Presence of prosthetic heart valve; Z79.899 Other long term (current) drug therapy; Z88.1 Allergy status to other antibiotic agents | CPT/HCPCS: 11042 ==

== ENCOUNTER 2021-02-13 14:01 | Outpatient (CLI) | payer OTHER | END 2021-02-13 23:59 | disposition home or self-care (01) | LOC: WOUND 14:01 | PROVIDERS: ATTEND Podiatrist Foot & Ankle Surgery | DX: E11.621 Type 2 diabetes mellitus with foot ulcer (principal); L97.512 Non-pressure chronic ulcer of other part of right foot with fat layer exposed; E11.42 Type 2 diabetes mellitus with diabetic polyneuropathy; L84 Corns and callosities; E11.610 Type 2 diabetes mellitus with diabetic neuropathic arthropathy; I25.10 Atherosclerotic heart disease of native coronary artery without angina pectoris; E11.22 Type 2 diabetes mellitus with diabetic chronic kidney disease; I13.2 Hypertensive heart and chronic kidney disease with heart failure and with stage 5 chronic kidney disease, or end stage renal disease; I50.42 Chronic combined systolic (congestive) and diastolic (congestive) heart failure; N18.6 End stage renal disease; D63.1 Anemia in chronic kidney disease; E78.5 Hyperlipidemia, unspecified; G47.00 Insomnia, unspecified; F41.9 Anxiety disorder, unspecified; E43 Unspecified severe protein-calorie malnutrition; Z68.30 Body mass index [BMI] 30.0-30.9, adult; Z79.4 Long term (current) use of insulin; Z99.2 Dependence on renal dialysis; Z89.411 Acquired absence of right great toe; Z89.421 Acquired absence of other right toe(s); Z90.49 Acquired absence of other specified parts of digestive tract; Z98.41 Cataract extraction status, right eye; Z98.42 Cataract extraction status, left eye; Z95.1 Presence of aortocoronary bypass graft; Z95.2 Presence of prosthetic heart valve; Z79.899 Other long term (current) drug therapy; Z88.1 Allergy status to other antibiotic agents | CPT/HCPCS: 11042 ==

== ENCOUNTER → 2021-03-14 | Outpatient (CLI) | payer OTHER | END | disposition home or self-care (01) | LOC: CFH 08:59 | PROVIDERS: ATTEND Internal Medicine Cardiovascular Disease | DX: I36.1 Nonrheumatic tricuspid (valve) insufficiency (principal); I11.0 Hypertensive heart disease with heart failure; I50.9 Heart failure, unspecified; E11.9 Type 2 diabetes mellitus without complications; E78.5 Hyperlipidemia, unspecified; Z95.1 Presence of aortocoronary bypass graft | CPT/HCPCS: 93306; 93356 ==

== ENCOUNTER 2021-04-25 06:41 | Day surgery (SDC) | payer OTHER ==
[~2021-04-25] VITALS: Ht 172.7 cm; Wt 87.2 kg
[2021-04-25] MEDS ORDERED: GABA-826 PO (08:22)
[2021-04-25 08:45] VITALS: BP 139/79
[2021-04-25 08:46] LABS: BASOPHILS % (AUTO) 1 % (0-1); EOSINOPHILS % (AUTO) 3 % (1-7); LYMPHOCYTES % (AUTO) 21 % (22-44); MEAN CORPUSCULAR HEMOGLOBIN 33.8 pg (27.5-34.5); MEAN CORPUSCULAR HGB CONC 33.8 g/dL (33.2-36.2); MEAN PLATELET VOLUME 6.9 fL (7.4-10.4); MONOCYTES % (AUTO) 10 % (2-9); NEUTROPHILS % (AUTO) 65 % (42-75); PLATELET COUNT 301 x10^3/uL (130-400); RED BLOOD COUNT 4.02 x10^6/uL (4.38-5.82); RED CELL DISTRIBUTION WIDTH 15.6 % (9.4-14.8)
[2021-04-25 08:56] LABS: ANION GAP 6 mmol/L (5-15); CALCIUM 9.5 mg/dL (8.5-10.1); CHLORIDE 100 mmol/L (98-107); CREATININE 8.43 mg/dL (0.7-1.3)
[2021-04-25] MEDS ORDERED: VERAPAMIL 2.5 MG/ML, 2ML ONE (08:58)
[2021-04-25] MEDS ORDERED: FENTANYL PF 100 MCG/2ML ONE (08:58)
[2021-04-25] MEDS ORDERED: MIDAZOLAM 1 MG/ML, 5ML ONE (08:58)
[2021-04-25] MEDS ORDERED: BIVALIRUDIN 250 MG ONE (08:59)
[2021-04-25] MEDS ORDERED: HEPARIN 1,000 UNITS/ML, 10ML ONE (08:59)
[2021-04-25] MEDS ORDERED: LIDOCAINE-MPF 1%, 5ML ONE (08:59)
[2021-04-25] MEDS ORDERED: LIDOCAINE 2%, 20ML ONE (09:00)
== END 2021-04-25 13:00 | disposition home or self-care (01) ==
LOC: CACL 06:41
PROVIDERS: ATTEND Internal Medicine Cardiovascular Disease
DX: Z01.810 Encounter for preprocedural cardiovascular examination (principal); I25.10 Atherosclerotic heart disease of native coronary artery without angina pectoris; I25.84 Coronary atherosclerosis due to calcified coronary lesion; I25.83 Coronary atherosclerosis due to lipid rich plaque; I25.82 Chronic total occlusion of coronary artery; I36.1 Nonrheumatic tricuspid (valve) insufficiency; E10.22 Type 1 diabetes mellitus with diabetic chronic kidney disease; I13.2 Hypertensive heart and chronic kidney disease with heart failure and with stage 5 chronic kidney disease, or end stage renal disease; I50.9 Heart failure, unspecified; N18.6 End stage renal disease; E78.5 Hyperlipidemia, unspecified; Z79.4 Long term (current) use of insulin; Z79.899 Other long term (current) drug therapy; Z99.2 Dependence on renal dialysis; Z95.1 Presence of aortocoronary bypass graft
CPT/HCPCS: 36415; 80048; 85025; 93459; 99156; C1760; C1769; C1894; J2250; J3010; Q9967; J0583; J1644